=== PATIENT | male | born 2000 | race Caucasian/White ===

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

== ENCOUNTER 2021-01-10 15:21 | Outpatient (REF) | payer MEDICAID, SELFPAY ==
[2021-01-10 18:25] LABS: Anion Gap 12.4 mmol/L (3-11); BUN 21 mg/dL (7-18); CO2 25.6 mmol/L (21.0-32.0); CREATININE 0.7 mg/dL (0.70-1.30); Calcium 9.3 mg/dL (8.5-10.1); Calculated LDL 128 mg/dL (<100); Chloride 104 mmol/L (98-107); Cholesterol 177 mg/dL (<200); Glucose 68 mg/dL (74-106); HDL Cholesterol 31 mg/dL (40-60); Potassium 3.8 mmol/L (3.5-5.1); Sodium 142 mmol/L (136-145); Triglyceride 92 mg/dL (<150)
[2021-01-10 18:45] LABS: Hemoglobin A1C 5.6 % (<5.7)
== END 2021-01-10 15:22 | disposition home or self-care (01) ==
LOC: NCHCN 15:21
PROVIDERS: PCP Physician Assistant; Visit Provider Physician Assistant
DX: E78.5 Hyperlipidemia, unspecified (principal); R73.09 Other abnormal glucose
CPT/HCPCS: 80048; 80061; 83036

== ENCOUNTER 2021-06-03 20:46 | Emergency (ER) | payer MEDICAID, SELFPAY ==
--- NOTE | 2021-06-03 20:48 | W.ED.GENAD ---
Discharge Plan Disposition Patient Disposition: HOME Condition: Stable Discharge Details Clinical Impression: Finger laceration Primary Care Provider: Rei Quintero ED Provider: Sunni Carter Home Meds and New Rx's Prescriptions: New doxycycline hyclate 100 mg tablet 100 mg PO BID 7 Days Qty: 14 RF: 0 Continued methylphenidate HCl [Concerta] 36 MG tablet extended release 24hr 54 mg PO DAILY RF: 0 Discharge Instructions Instructions: Finger Laceration (ED) Additional Instructions: Keep wound clean and dry. Cover wound with bandage if risk of contamination. Otherwise you can keep the wound open to air if resting at home to allow edges to dry and heal. Alternate tylenol and motrin as needed and directed for pain. A prescription for doxycycline has been sent electronically to your pharmacy. Take this as directed until finished. Return to the emergency department in 7 days for suture removal. Stand Alone Forms: Work Release Discharge Data Discharge Date/Time-TO BE ENTERED AT DEPARTURE: 06/03/21 22:46 Discharge Physician: Sunni Carter Medical Decision Making <Sunni Carter DO - Last Filed: 06/04/21 01:52> 20-year-old male presents with left second finger laceration sustained with a knife while cutting a pumpkin prior to arrival. Tetanus up to date. 3 cm straight laceration located on medial aspect of proximal phalange of left second finger. Bleeding controlled. No bony deformities or foreign bodies noted. He was offered xray but declined. Neurovascularly intact. Due to high volume in the ED, suture placement performed by MAHESH Burleson. Please see her procedure note for further details. 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 He is allergic to penicillin. He was given doxycycline to go and a prescription was sent electronically to his pharmacy. Instructed on the importance of proper wound care. Advised to return to the ED in 7 days for suture removal. Medical Records Medical records reviewed: Yes I reviewed the patient's medical records. HPI <DO Claire Worley Last Filed: 06/04/21 01:52> General Mode of arrival: ambulatory. Date/Time Provider Initiated Documentation: 06/03/21 20:48. Limitations to Documentation: no limitations. Information obtained by: patient. HPI Narrative: Patient is a 20-year-old male who presents to the ED with complaint of left second finger laceration sustained while cutting a pumpkin with a knife prior to arrival. States knife is still intact. Denies any known foreign bodies. Denies any deep bony pain. Tetanus up-to-date. Related Data Home Medications Medication Instructions Recorded Confirmed methylphenidate HCl [Concerta] 54 mg PO DAILY 11/24/12 06/03/21 doxycycline hyclate 100 mg PO BID 7 Days #14 tab 06/03/21 Previous Rx's Medication Instructions Recorded doxycycline hyclate 100 mg PO BID 7 Days #14 tab 06/03/21 Allergies Allergy/AdvReac Type Severity Reaction Status Date / Time amoxicillin [Amoxicillin] Allergy Mild Skin Rash Verified 06/03/21 20:53 General NAVID: 4 Review of Systems <Sunni Carter DO - Last Filed: 06/04/21 01:52> All systems reviewed & are unremarkable except as noted in HPI and below PFSH <Sunni Carter DO - Last Filed: 06/04/21 01:52> Medical History (Updated 06/03/21 @ 22:37 by Sunni Carter DO) ADD (attention deficit disorder) Surgical History No significant past surgical history Social History Smoking/Tobacco Use Status: Never Smoking risk assessment performed?: Yes Alcohol Intake: never Drug use: Never Substance use type: does not use Current gender identity: male Do you feel safe at home: Yes Do you feel safe in your relationship?: Yes Exam <Sunni Carter DO - Last Filed: 06/04/21 01:52> Const General: cooperative, healthy appearing and no acute distress [facility] Head: normal to inspection Mouth: oral mucosae normal Eyes General: appearance normal, both eyes and all related structures Neck Neck: normal visual inspection Resp Effort & Inspection: normal respiratory effort and able to speak in complete sentences Cardio Rate: regular rate Skin General skin exam: no rashes or lesions noted Neuro General: patient alert, patient awake and patient oriented x3 Motor: muscle tone normal throughout Other: Motor/sensory grossly intact. Extrem Hand/finger images: 1. 3 cm straight laceration located on the medial aspect of left second finger proximal phalange. Bleeding controlled. Mild to moderate surrounding tissue edema. No obvious foreign bodies or bony deformity. Psych Appearance: grossly normal Affect: normal affect <Malia Burleson - Last Filed: 06/04/21 00:29> Laceration Laceration 1: Site: hand (Index finger) Side (If applicable): left Size (cm): 3.5 Description: irregular Depth: simple, single layer Local Anesthetic: Lidocaine 1% Pre-repair: wound explored and irrigated extensively Skin layer closed with: nylon Size (cm): 5-0 Number of sutures: 6 Technique: simple, interrupted Nerve Block Nerve Block 1: Time out performed: No Local Anesthetic: Lidocaine 1% Amount of anesthesia used (mL): 4 Side: left Nerve Blocks: digital (4 sided ring) Procedure Successful: Yes Patient Tolerated Procedure: well and no complications Complications: none
[2021-06-03 20:49] VITALS: BP 140/71; PULSE 88; RESP 18; TEMP 36.8; O2SAT 97
--- NOTE | 2021-06-03 21:49 | PROC.BLANK_ITS ---
Date of service: 06/03/21
--- NOTE | 2021-06-03 21:49 | W.ED.PROC ---
Date of service: 06/03/21
[2021-06-03] MEDS: Doxycycline Hyclate 100 MG, 2 CAPS/BTL PO (22:22)
[2021-06-03] MEDS: Doxycycline Hyclate 100 MG CAP PO (22:22)
--- NOTE | 2021-06-03 22:22 | NUR.NOTE ---
Nursing Note: Band aid drsg applied over left index finger wound post suture placement.
== END 2021-06-03 22:46 | disposition home or self-care (01) ==
PROVIDERS: Emergency Provider Physician Assistant; PCP Physician Assistant
DX: S61.211A Laceration without foreign body of left index finger without damage to nail, initial encounter (principal); W26.0XXA Contact with knife, initial encounter
CPT/HCPCS: 12002

== ENCOUNTER 2022-01-15 15:13 | Outpatient (REF) | payer MEDICAID, SELFPAY ==
[2022-01-15 15:49] LABS: Anion Gap 9.2 mmol/L (3-11); BUN 21 mg/dL (7-18); CO2 25.8 mmol/L (21.0-32.0); CREATININE 0.9 mg/dL (0.70-1.30); Calcium 9.1 mg/dL (8.5-10.1); Calculated LDL 142 mg/dL (<100); Chloride 105 mmol/L (98-107); Cholesterol 200 mg/dL (<200); Glucose 90 mg/dL (74-106); HDL Cholesterol 33 mg/dL (40-60); Potassium 4.3 mmol/L (3.5-5.1); Sodium 140 mmol/L (136-145); Triglyceride 125 mg/dL (<150)
[2022-01-16 17:18] LABS: Hemoglobin A1C 5.6 % (<5.7)
== END 2022-01-15 15:14 | disposition home or self-care (01) ==
LOC: NCHCN 15:13
PROVIDERS: PCP Physician Assistant; Visit Provider Physician Assistant
DX: R73.03 Prediabetes (principal); E78.5 Hyperlipidemia, unspecified
CPT/HCPCS: 80048; 80061; 83036

== ENCOUNTER 2022-04-07 19:37 | Emergency (ER) | payer MEDICAID, SELFPAY ==
[2022-04-07] VITALS (18 sets, daily range): BP systolic 113–147; BP diastolic 47–79; PULSE 81–101; RESP 14–26; TEMP 36.8; O2SAT 97
--- OUTSIDE RECORDS SUMMARY | 2022-04-07 19:42 | XMS_ITS | Encounter Summary ---
:2000 Author Organization [facility] [place] [address] Care Team Providers Name Role Phone Nell Wesley MD Primary Care Provider Encounter Details Date Type Department Care Team Description 07/07/2018 Hospital Encounter Radiology Library at [facility] [place] [address] [place] [address] ORTHOPAEDIC SURGERY [phone] [place], [place] [address] (Wo rk) Social History Tobacco Use Types Packs/Day Years Used Date Never Assessed Sex Assigned at Date Recorded Not on file documented as of this encounter Medications at Time of Discharge Medication Sig Dispensed Refills Start Date End Date CONCERTA 54 mg Tablet 1 tablet 2 times 0 06/15/20 18 Extended Rel 24 hr daily. documented as of this encounter Plan of Treatment Not on filedocumented as of this encounter Procedures Procedure Name Priority Date/Time Associated Diagnosis Comme nts FILM LIBRARY Routine 07/07/2018 12:00 AM Results for this STORAGE ONLY DX EST procedure ar e in SPINE the results section. documented in this encounter Results Film Library- Storage Only DX Spine (07/07/2018 12:00 AM EST) Specimen (Source) Anatomical Location Collection Method / Collectio n Time Received Time / Laterality Volume Narrative [facility] - 07/13/2018 7:36 PM EST This exam is for storage only and is aut o-finalizing. Calderon Reveles MD IMG FILM LIBRARY ORDERABLES Performing Organization Address City/State/ZIP Code Phon e Number [place], [place] documented in this encounter Visit Diagnoses Not on filedocumented in this encounter Care Teams Data Analytics Analyst Relationship Specialty Start Date End Date Nell Wesley MD PCP - General Pediatrics 11/20/17 [address] [place] [address] documented as of this encounter
--- OUTSIDE RECORDS SUMMARY | 2022-04-07 19:42 | XMS_ITS | Encounter Summary ---
:2000 [place] [address] Care Team Providers Name Role Phone Nell Wesley MD Primary Care Provider Reason for Visit Reason Onset Date Comments Referral 11/28/2017 Encounter Details Date Type Department Care Team Description 11/28/2017 Telephone Weight and Wellness at Judith Frank MD Referral [facility] [address] [facility] [place] [address] [place] [address] [phone] (Wo rk) Social History Tobacco Use Types Packs/Day Years Used Date Never Assessed Sex Assigned at Date Recorded Not on file documented as of this encounter Miscellaneous Notes Telephone Encounter - Judith Frank MD - 12/03/2017 10:43 PM EDT [facility] Referral Note Name: Brijesh Lam MR: [id number] : 2000 Age: 16 y.o. 11 m.o. PCP:Nell Wesley MD [employer]SEM[employer]:No primary care provider on file. Note to scheduling: [xx ] scanned labs available for review DiIAGNOSIS / CONCERN: SCHEDULING- PROVIDER: [ ] Hyperlipidemia without elevated BMI: [ ] Harvinder [ ] Juan Daniel [ ] Either [x ] Elevated BMI +/- comorbidities: [ ] Harvinder [ ] Monika [x ] Either Additional information: Telephone Encounter - Roxanna Savage - 11/28/2017 9:24 AM EDT Please review Thank you documented in this encounter Plan of Treatment Not on filedocumented as of this encounter Visit Diagnoses Not on filedocumented in this encounter Care Teams Teletypesetter Operator Relationship Specialty Start Date End Date Nell Wesley MD PCP - General Pediatrics 11/20/17 [address] [place] [address] documented as of this encounter
--- OUTSIDE RECORDS SUMMARY | 2022-04-07 19:42 | XMS_ITS | Clinical Summary ---
:2000 Author Organization [facility] Address [place] [id number] Care Team Providers Name Role Phone Nell Wesley MD Primary Care Provider Allergies Active Allergy Reactions Severity Noted Date Comments Amoxicillin Rash 07/14/2018 Medications Medication Sig Dispensed Refills Start Date End Date Status CONCERTA 54 mg Tablet 1 tablet 2 times 0 06/15/2018 Active Extended Rel 24 hr daily. ibuprofen Take 400 mg by 0 Activ e (ADVIL;MOTRIN) 200 mg mouth as needed Tablet for Pain. Active Problems Problem Noted Date Herniation of lumbar intervertebral disc with radiculo yonathan 09/08/2018 Overview: L5-S1 left Social History Tobacco Use Types Packs/Day Years Used Date Never Smoker Smokeless Tobacco: Never Used Sex Assigned at Date Recorded Not on file Last Filed Vital Signs Vital Sign Reading Time Taken Comments Blood Pressure 135/78 08/13/2018 8:54 AM EST Pulse 89 08/13/2018 8:54 AM EST Temperature - - Respiratory Rate 16 08/13/2018 8:54 AM EST Oxygen Saturation 96% 08/13/2018 8:54 AM EST Inhaled Oxygen Concentration - - Weight 120.2 kg (265 lb) 08/13/2018 8:18 AM EST Height 172.7 cm (5' 8) 08/13/2018 8:18 AM EST Body Mass Index 40.29 08/13/2018 8:18 AM EST Plan of Treatment Health Maintenance Due Date Last Done Comments Covid-19 Vaccine (#1) 2006 HPV vaccine (1 - Male 2-dose series) 2012 HIV screen 12/17/2019 Hepatitis C Screening 12/17/2019 Tdap adult 2020 Tetanus vaccine 2020 Influenza (Flu) vaccine (1 of 1 - Influenza standard 04/18/2022 series) Insurance Payer Benefit Plan / Subscriber ID Effective Dates Phone Addre ss Type Group [place] [id number] 2018-Pres [phone] [address] [facility] ent [address] [place], [place] [phone] Care Teams Histology Technician Relationship Specialty Start Date End Date Nell Wesley MD PCP - General Pediatrics 11/20/[address] [place] [address]
--- OUTSIDE RECORDS SUMMARY | 2022-04-07 19:42 | XMS_ITS | Encounter Summary ---
:2000 Author Organization [facility] [place] [address] Care Team Providers Name Role Phone Nell Wesley MD Primary Care Provider Reason for Visit Reason Comments Other numbness in right leg Back Pain Consultation (Routine) - Closed Specialty Diagnoses / Procedures Referred By Contact Refer red To Contact Orthopaedics Diagnoses Herniation of lumbar intervertebral disc with radiculopathy Francisco J Holden PA [facility] [address] [place] [address] [place] [address] Phone: Referral ID Status Reason Start Date Expiration Date Visits V isits Requested Authorized [id number] Closed Consult, 08/31/2018 08/31/2019 1 1 Test & Treat Encounter Details Date Type Department Care Team Description 09/08/2018 Office Visit [facility] on of lumbar [place] [facility] [address] [place] [address] [phone] Social History Tobacco Use Types Packs/Day Years Used Date Never Smoker Smokeless Tobacco: Never Used Sex Assigned at Date Recorded Not on file documented as of this encounter Progress Notes [facility]on James MD - 09/08/2018 9:20 AM EST Images from the original note were not included. Calderon James MD MS FAOA Department of Orthopaedics [facility] September 08, 2018 Mr. Lam is a 17-year-old gentleman seen today in the spine center in consultation from RIKKI Zapien. He is seen and evaluated for resolving left leg pain and numbness. Symptoms began in late April playing football. He had the acute onset of posterior thigh pain left side felt to be a hamstring pull. He was seen by his physical therapist who thought it was a lumbar spine problem leading tohis lumbar MRI eventually. His right leg is asymptomatic. He has minimal back pain. His left leg pain is improving. He has no pain at night at present. He has no weakness. He has had one epidural steroid injection with significant though temporary improvement. He continues to go to school. He has an interest in agriculture. His review of systems is negative for GI, , and constitutional symptoms. Specifically has no perineal numbness or bowel bladder changes and no indication at all of cauda equinasyndrome. Allergies include amoxicillin causing a rash. He is morbidly obese with a height of 5 feet 8 inches,weight of 265 pounds with a body mass index of 40.29. Leg pain is rated as a 5. He is accompanied byhis mother who works with Dr. Juarez Parks with one thank you of our formal orthopedic residents. This is a pleasant quiet obese gentleman. In the short distance his gait is normal. He can toe and heel walk without weakness. He has no difficulties getting in and out of a sitting position to a standing position. On inspection from the back he has a level pelvis and straight spine all of which is nontender including the sciatic notches. He has multiple areas of complaint throughout his back including the low lumbar spine area. On neurologic examination his lower extremity motor exam is completely normal. Reflexes are 2 at the knees and ankles. Sensory function is diminished only in the left foot medial equal to lateral. Straight leg raise test and cross straight leg raise test and notable only for back pain not leg pain. Lumbar MRI is reviewed from this institution dated 08/12/28. This demonstrates a large left central disc herniation L5-S1 seen on axial T2 images 29 and 30 series 5 and sagittal T2 image 33 series 4. He has a broad-based disc protrusion L4-L5 which is also a very degenerative disc. He has disc degeneration T11-T12. Impression: Resolving lumbar radiculopathy left side L5-S1. Recommendation: Reviewed these findings including the imaging studies with the patient and his mother. I reviewed the natural history of lumbar intervertebral disc herniation. I reviewed both medical and surgical options as well. Given that he is 17 years old and his symptoms are improving and he has no focal objective neurological deficits of recommended continued medical management which may include repeated injections up at [facility] by Dr. Robertson if needed. I reviewed the potential for cauda equina syndrome noting that it should be a medical emergency and the patient should seek immediate care and withhold any oral intake. I also advised caution with regards to lifting bending twisting activities and avoidance of football. If his symptoms worsen to a significant degree choices include repeat injection versus surgical discussion and intervention. This is a very tough situation in a morbidly obese gentleman with 2 degenerative disc in 1 large herniation but fortunately is improving. He is likely at high risk for chronic low back pain and/or repeated operations just given the current findings and the literature on this problem. All this was reviewed in detail with the patient and his mother. They know to call if there is any questions or concerns or changes. Calderon James MD MS FAOA Department of Orthopaedic Surgery [place] [address] Mobile Sales Technician of Orthopaedic Surgery [facility] [phone] [email or web address] documented in this encounter Plan of Treatment Scheduled Referrals Name Type Priority Associated Diagnoses Order S chedule Referral to Spine Outpatient Referral Routine Herniation of hannah mbar Ordered: Center intervertebral disc 08/31/19 19 with radiculopathy documented as of this encounter Visit Diagnoses Diagnosis Herniation of lumbar intervertebral disc 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
--- OUTSIDE RECORDS SUMMARY | 2022-04-07 19:42 | XMS_ITS | Encounter Summary ---
:2000 Author Organization [facility] [place] [address] Care Team Providers Name Role Phone Nell Wesley MD Primary Care Provider Reason for Referral Routine Exam (Routine) - Specialty Diagnoses / Procedures Referred By Contact Refer red To Contact Diagnoses Intervertebral disc disorder with radiculopathy of lumbar region Queenie Pressley MD Procedures Epidural steroid injection - [facility] [place] [address] Referral ID Status Reason Start Date Expiration Visits Visits Date Requested Authorized [id number] Specialty 08/13/2018 08/13/2019 1 1 Service Requested Reason for Visit Reason Comments Back Pain Consultation (Routine) - Closed Specialty Diagnoses / Procedures Referred By Contact Refer red To Contact Pain Management Diagnoses Herniation of lumbar intervertebral disc with radiculopathy Request LEFT L5-S1 LESI. Francisco J Holden MChan Pain Management Procedures PRO INJECTION DX/THER SBST INTRLMNR LMBR/SAC W/IMG GDN PA 3d [facility] [address] [place], [place] [id number] [place] [phone] Fax: Referral ID Status Reason Start Date Expiration Date Visits V isits Requested Authorized [id number] Closed Assume 08/12/2018 08/12/2019 1 1 Subset of Care Encounter Details Date Type Department Care Team Description 08/13/2018 Procedure visit Pain Management at Queenie Pressley MD Intervertebral disc [facility] disorder with [facility] radiculopathy of lumbar Drive [place] [id number] [phone] Social History Tobacco Use Types Packs/Day Years Used Date Never Smoker Smokeless Tobacco: Never Used Sex Assigned at Date Recorded Not on file documented as of this encounter Last Filed Vital Signs Vital Sign Reading [...] Mass Index 40.29 08/13/2018 8:18 AM EST Body Mass Index Percentile 99.69 % 08/13/2018 8:18 AM ES T Growth Chart: [facility] (Boys, 2-20 Years) documented in this encounter Patient Instructions Patient InstructionsJen Collier RN - 08/13/2018 8:15 AM EST Pain Management Center Discharge Instructions: You were seen by Dr. Queenie Pressley MD and Howard Pemberton MD who performed Caudal Epidural Steroid Injection. It is normal that the injection site will be sore for up to 48 hours. You may also experience mild stiffness in the joint near the injection site. [x] You may resume your normal activities: tomorrow. You may shower today. DO NOT tub bathe, use whirlpools, hot tubs or pool therapy for 2 days. Remove Band-Aid(s) later today/tomorrow. Do not drive until tomorrow. Use caution walking/climbing stairs as you may be unsteady on your feet. You may use your usual medications, including pain medications, as directed, unless otherwise instructed. You may use an ice pack as needed for the first 24 hours, on for 20 minutes then off for 20 minutes.Do not apply heat today. Attempt to empty your bladder 4-6 hours after your procedure. You received the following medications: Depo-Medrol 80 mg, Lidocaine and Omnipaque (contrast dye). During regular business hours, please phone the Pain Management Center at with any questions or if the following or other troubling symptoms develop: 1) Prolonged dizziness or weakness (more than 1 day). 2) Localized swelling, redness or drainage at the injection site(s). 3) Temperature of 101 degrees that lasts for more than 4 hours. After 5 PM or on weekends, call and ask for Pain Clinic provider on-call. If you are unable to reach the Pain Management Center and have a complication, please call your Primary Care Provider or proceed to your local emergency department. documented in this encounter Progress Notes Howard Pemberton MD - 08/13/2018 8:15 AM EST PREPROCEDURE HISTORY AND PHYSICAL Date of Visit: August 13, 2018 Chief Complaint: Left leg and low back HPI: Subjective Brijesh Lam is a 17 y.o. male who presents today for caudal epidural steroid injection. The history is obtained from the patient, and I have reviewed medical records provided by the referring physician and located in the electronic medical record to fill in gaps in the patient's recollection of events, treatments and outcomes. LOCATION: Left leg and low back PAIN LEVEL AT REST 7/10 PAST MEDICAL HISTORY: History reviewed. No pertinent past medical history. PAST SURGICAL HISTORY: History reviewed. No pertinent surgical history. FAMILY HISTORY: History reviewed. No pertinent family history. SOCIAL HISTORY: Social History Socioeconomic History ??? Marital status: Single Spouse name: Not on file ??? Number of children: Not on file ??? Years of education: Not on file ??? Highest education level: Not on file Social Needs ??? Financial resource strain: Not on file ??? Food insecurity - worry: Not on file ??? Food insecurity - inability: Not on file ??? Transportation needs - medical: Not on file ??? Transportation needs - non-medical: Not on file Occupational History ??? Not on file Tobacco Use ??? Smoking status: Never Smoker ??? Smokeless tobacco: Never Used Substance and Sexual Activity ??? Alcohol use: Not on file ??? Drug use: Not on file ??? Sexual activity: Not on file Other Topics Concern ??? Not on file Social History Narrative ??? Not on file ALLERGIES: Amoxicillin MEDICATIONS: Medications 08/12/18 1033 Medication Sig Taking? CONCERTA 54 mg Tablet Extended Rel 24 hr 1 tablet 2 times daily. ibuprofen (ADVIL;MOTRIN) 200 mg Tablet Take 400 mg by mouth as needed for Pain. cyclobenzaprine (FLEXERIL) 5 mg Tablet Take 1 tablet by mouth nightly as needed (Can take one-half tablet if needed.). Patient not taking: Reported on 08/12/2018 ROS: Pt denies recent fever, chills, infection, wounds, hospitalizations, ED visits, use of antibiotics. Otherwise, as described above. PHYSICAL EXAM: There were no vitals taken for this visit. General: patient well developed and is non-distressed Head: normocephalic and atraumatic CV: normal rate, normal rhythm Pulmonary: effort and breath sounds normal, no wheezing Skin: non-diaphoretic and no rashes noted MSK: full LE strength Physical Exam RADIOLOGIC DATA: MRI reviewed from 08/13/18 LABS/DX RESULTS: Labs reviewed and no new labs pertinent to today's procedure. ASSESSMENT: 1. Intervertebral disc disorder with radiculopathy of lumbar region PLAN: Proceed with caudal epidural steroid injection with catheter to L5-S1. Howard Pemberton MD Pain Management Fellow [address] [phone] / [facility] Jen Collier RN - 08/13/2018 8:15 AM EST Pre-Procedure Screening Questions: 1. Status: No 2. Patient states they have a commercial driver's license driver to transport after procedure? Yes 3. Patient taking antibiotics at present? No 4. NPO per Pain Management Center protocol? No 5. Patient diabetic: No Patient routinely taking anticoagulants ? No Patient Vital Signs documented in Doc Flowsheets associated with this encounter. Patient Discharge Instructions were reviewed with patient and copy provided to patient. documented in this encounter Procedure Notes Queenie Pressley MD - 08/13/2018 8:15 AM ESTAssociated Order(s): EPIDURAL STEROID INJECTION Procedure(s): EPIDURAL STEROID INJECTION Pre-Procedure Diagnose(s): Intervertebral disc disorder with radiculopathy of lumbar region PROCEDURE NOTE CAUDAL EPIDURAL STERIOID INJECTION Date of Service: 08/13/2018 Patient: Brijesh Lam Provider: Queenie Pressley MD Brijesh Lam has been referred to the Pain Management Center for caudal epidural steroid injection. COMMENTS: Referring provider: Francisco J BRANDT Symptoms: left posterior thigh, plantar aspect of left foot Imaging reviewed MRI L spine which showed large L5-S1 disc protrusion. Mr. Lam was interviewed and the medical record was reviewed. There were no medical, pharmacologic,radiographic or other structural contraindications to attempting fluoroscopically guided epidural steroid injection. Risks and expected side effects as well as potential benefit of the procedure were re viewed with Mr. Lam, and his voiced concerns were addressed. The printed consent form was signed and witnessed. Standard time-out procedure was performed. Mr. Lam was placed in the prone position on the fluoroscopy table and automated blood pressure cuff and pulse oximeter applied. The skin entry point for entering/approaching the epidural space by a caudal approach through the sacral hiatus ed identified with surgical skin marking. Following thorough chlorhexidine preparation x 2 of the skin and draping and 1% lidocaine infiltration of the skin entry point and subcutaneous tissues, a 25 gauge 3.5'' spinal needle was placed under fluoroscopic guidance into the epidural space. Needle tip placement and depth were aided and confirmed by fluoroscopy in the lateral and AP position. There was no paresthesia or return of blood or CSF through the needle. 1.5 cc of Omnipaque 240 wasinjected with clear epidural spread confirmed with fluoroscopy with cephalad spread to L5-S1. Then 80 mg of Depomedrol was injected. There was no unusual discomfort expressed by Mr. Lam. The needle was then flushed with 2 cc of 1% Lidocaine and 2 cc of 0.9% normal saline they were removed without difficulty. Mr. Gardners vital signs were stable throughout the procedure and were as recorded in the docflowsheet by the nursing staff. If given, dosages of intravenous drugs for anxiolysis and analgesia were documented in OCT. Follow up plans and appointments were discussed with Mr. Lam. Post procedure instruction was givenas documented in nursing documentation and having met discharge criteria, he was discharged from [facility]. COMMENTS: No apparent complications. This procedure can be completed up to 3 times per 12 months. Pre-procedure pain level 7/10. Post-procedure pain level 0/10. Follow-up with Francisco J Holden. Howard Pemberton MD Pain Fellow I was the supervising attending for this procedure. I am present during the entire procedure. Queenie Pressley MD Attending Physician-Pain Management Thank you for the referral! CC: RIKKI Taylor [facility] [place] [address] Nell Wesley MD [facility] [address] [place] [address] documented in this encounter Plan of Treatment Not on filedocumented as of this encounter Procedures Procedure Name Priority Date/Time Associated Diagnosis Comme nts EPIDURAL STEROID Routine 08/13/2018 8:15 AM Intervertebral dis c Results for this INJECTION EST disorder with procedure are in radiculopathy of lumbar the results region section. documented in this encounter Results EPIDURAL STEROID INJECTION (08/13/2018 8:15 AM EST) Narrative Queenie Pressley MD - 08/13/2018 8:15 AM EST Queenie Pressley MD ? 08/13/2018 10:07 AM PROCEDURE NOTE CAUDAL EPIDURAL STERIOID INJECTION Date of Service: ??08/13/2018 Patient: ??Brijesh Lam ?? 20- Provider: ??Queenie Pressley MD ?? Brijesh Lam has been referred to the [place] [facility] for caudal epidural steroid injection. ?? COMMENTS: Referring provider: ??Francisco J BRANDT Symptoms: left posterior thigh, plantar aspect of left foot Imaging reviewed MRI L spine which showe d large L5-S1 disc protrusion. Mr. Lam was interviewed and the medica l record was reviewed. ?? There were no medical, pharmacologic, ra diographic or other structural contraindications to attempti ng fluoroscopically guided epidural steroid injection. ??Ris ks and expected side effects as well as potential benefit of the procedure were reviewed with Mr. Lam, and his voiced concerns were addressed. ?? The printed consent form was signed and witnessed. ??Standard time-out procedure was performed. Mr. Lam was placed in the prone positi on on the fluoroscopy table and automated blood pressure cuff and pulse oximeter applied. ??The skin entry point for ente ring/approaching the epidural space by a caudal approach thro ugh the sacral hiatus ed identified with surgical skin marking. ? ?Following thorough chlorhexidine preparation x 2 of the ski n and draping and 1% lidocaine infiltration of the skin entry point and subcutaneous tissues, a 25 gauge 3.5'' spinal needle was placed under fluoroscopic guidance ??into the epidura l space. Needle tip placement and depth were aide d and confirmed by fluoroscopy in the lateral and AP positi on. There was no paresthesia or return of blood or CSF th rough the needle. 1.5 cc of Omnipaque 240 was injected with clear epidural spread confirmed with fluoroscopy with cephalad spread to L5-S1. Then 80 mg of Depomedrol was ??injected. There w as no unusual discomfort expressed by Mr. Lam. ??The needle was then flushed with 2 cc of 1% Lidocaine and 2 cc of 0.9% normal shane ine they were removed without difficulty. Mr. Lam's vital signs were stable thro ughout the procedure and were as recorded in the docflowsheet by the nursing staff. ??If given, dosages of intravenous drugs for anxiolysis and analgesia were documented in MAR. Follow up plans and appointments were di scussed with Mr. Lam. ?? Post procedure instruction was given as documented in nursing documentation and having met zoë madison, he was discharged from the Pain Management Cent er. COMMENTS: No apparent complications. ??T his procedure can be completed up to 3 times per 12 months. Pre-procedure pain level 7/10. Post-proc edure pain level 0/10. Follow-up with Francisco J Holden. Howard Pemberton MD Pain Fellow I was the supervising attending for this procedure. I am present during the entire procedure. Queenie Pressley MD Attending Physician-Pain Management Thank you for the referral! CC: RIKKI Taylor [facility] [place] [address] Nell Wesley MD [address] [address] Queenie Pressley MD NEUROLOGY ORDERABLES documented in this encounter Visit Diagnoses Diagnosis Intervertebral disc disorder with radicu lopathy of lumbar region Thoracic or lumbosacral neuritis or radi culitis, unspecified documented in this encounter Administered Medications Inactive Administered Medications - up to 3 most recent administrations Medication Order MAR Action Action Date Dose Rate Site iohexol (OMNIPAQUE) 240 mg/mL Given 08/13/2018 8:45 AM EST 5 mLs solution 5 mL 5 mL, Epidural, ONCE, 1 dose, On Jessy 08/13/18 at 0845, Wasted 45ml epidurally, Routine methylPREDNISolone acetate (DEPO-Medrol) Given 08/13/2018 8:45 A M EST 80 mg injection 80 mg 80 mg (0.666 mg/kg/dose), Epidural, ONCE, 1 dose, On Jessy 08/13/18 at 0845, Routine documented in this encounter Care Teams Metal Solderer Relationship Specialty Start Date End Date Nell Wesley MD PCP - General Pediatrics 11/20/[address] [place] [address] documented as of this encounter
--- OUTSIDE RECORDS SUMMARY | 2022-04-07 19:42 | XMS_ITS | Encounter Summary ---
:2000 Author Organization [facility] [place] [address] Care Team Providers Name Role Phone Nell Wesley MD Primary Care Provider Reason for Visit Reason Comments Back Pain Left Leg Pain Consultation (Urgent) - Specialty Diagnoses / Procedures Referred By Contact Refer red To Contact Orthopaedics Diagnoses HAMSTRING PAIN STARTED 1 MONTH AGO, THEN W/ RADIATION DOWN LEFT LEG, AND NOW HAS FOOT NUMBNESS DURING STRETCHING EXERCISES Nell Wesley MD [facility] Procedures X RAY SHOWS NARROWING OF DISK SPACE IN LUMBAR REGION [address] [place] [address] [place] [address] Referral ID Status Reason Start Date Expiration Date Visits V isits Requested Authorized [id number] Consult, 07/13/2018 07/13/2019 25 25 [facility] Encounter Details Date Type Department Care Team Description 07/14/2018 Office Visit [facility], Francisco J M, Left l umbosacral radiculopathy; Robson BRANDT Acute left-sided low back pain with left -sided sciatica [facility] [address] [place] [phone] Social History Tobacco Use Types Packs/Day Years Used Date Never Smoker Smokeless Tobacco: Never Used Sex Assigned at Date Recorded Not on file documented as of this encounter Last Filed Vital Signs Vital Sign Reading Time Taken Comments Blood Pressure 141/73 07/14/2018 10:57 AM EST Pulse - - Temperature - - Respiratory Rate - - Oxygen Saturation - - Inhaled Oxygen Concentration - - Weight 115.7 kg (255 lb) 07/14/2018 10:57 AM EST Height 172.7 cm (5' 8) 07/14/2018 10:57 AM EST Body Mass Index 38.77 07/14/2018 10:57 AM EST Body Mass Index Percentile 99.61 % 07/14/2018 10:[address] Growth Chart: [facility] (Boys, 2-20 Years) documented in this encounter Progress Notes Francisco J Holden, RIKKI - 07/14/2018 10:40 AM EST Brijesh Lam Is a 17-year-old gentleman seen today with his mother to support his history. This is for chief complaint of low back pain with left lower extremity radiation notable over the past 2-3 months. It has been progressive over the past 2 weeks with an increasing sense of numbness and tingling.Symptoms are localized over the midline low back, and goes over the right thigh and posterior calf and goes into the foot diffusely at the dorsal and plantar aspects. Symptoms improve with being in a recliner, standing and it worsens with prolonged sitting and driving and bending forward. 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 He thinks he would like to work in a form in the future. He tells me that recently, he has not really made much progress with physical therapy and he was sent to me today for evaluation and consideration of further treatment and evaluation. He does not report prior spine surgery. He does not report tobacco or alcohol use. Exam today, this is an obese 17-year-old gentleman, BMI 38, height is 5 feet 8 inches, weight is 255pounds. His gait is antalgic on the left. He has no weakness of toe walking or heel walking. He stands without evident spinal deformity. He is nontender to palpation. He does have positive straight legraise on the left side reproducing pain over his thigh and calf, negative on the right. He is able to bend forward only about 30 degrees and increasing back and left buttock pain, otherwise is able to extend about 20 degrees without much issues. Motor and sensory exam does not show focal deficits withthe exception of diminished sensation over the left dorsal and plantar foot. Reflexes are symmetric at both knees and both ankles. Palpable peripheral pulses. Painless hip range of motion on both sides. Reviewed plain x-rays of the lumbar spine performed in 2018 this shows well- preserved disc and vertebral body heights throughout without scoliosis or spondylolisthesis with the exception of the L5-S1 level where there is mild disc height loss. Assessment/plan: Brijesh Lam is a 17-year-old gentleman seen today for 2-3 months of back pain withleft lower extremity pain with positive straight leg raise, and diminished sensation over the left foot suggestive of a left lumbosacral radiculopathy likely with underlying lumbar disc herniation. I had a discussion with Brijesh and his mother about further management strategies here and for now they would like to trial further conservative management with oral medication should be Medrol Dosepakalongside cyclobenzaprine 5 mg due to his difficulties with pain at bedtime and falling asleep and staying asleep at night. I did advise them to monitor for excessive sedation with this medication and to break the tablet in half if necessary. If medications and physical therapy are not immediately effective for him, will contact our office and we will proceed with a noncontrast lumbar spine MRI, and following that we will discuss other options for treatment such as injection procedures and surgical intervention if indicated. documented in this encounter Plan of Treatment Not on filedocumented as of this encounter Visit Diagnoses Diagnosis Left lumbosacral radiculopathy Thoracic or lumbosacral neuritis or radi culitis, unspecified Acute left-sided low back pain with left -sided sciatica documented in this encounter Care Teams Radiator Repairer Relationship Specialty Start Date End Date Nell Wesley MD PCP - General Pediatrics 11/20/17 [address] [place] [address] documented as of this encounter
--- OUTSIDE RECORDS SUMMARY | 2022-04-07 19:42 | XMS_ITS | Encounter Summary ---
:2000 Author Organization [place] [address] Care Team Providers Name Role Phone Nell Wesley MD Primary Care Provider Reason for Referral Consultation (Routine) - Closed Specialty Diagnoses / Procedures Referred By Contact Refer red To Contact Pain Management Diagnoses Herniation of lumbar intervertebral disc with radiculopathy Request LEFT L5-S1 LESI. [facility] Pain Management Procedures PRO INJECTION DX/THER SBST INTRLMNR LMBR/SAC W/IMG GDN PA 3d [facility] [place] [address] [place] [address] Fax: Referral ID Status Reason Start Date Expiration Date Visits V isits Requested Authorized [id number] Closed Assume 08/12/2018 08/12/2019 1 1 Subset of Care Reason for Visit Reason Comments Follow-up Back Pain Encounter Details Date Type Department Care Team Description 08/12/2018 Office Visit [facility] at [facility] Herniatio n of lumbar RIKKI Skinner intervertebral disc with [facility] radiculop [facility] [address] [place] [phone] Social History Tobacco Use Types Packs/Day Years Used Date Never Smoker Smokeless Tobacco: Never Used Sex Assigned at Date Recorded Not on file documented as of this encounter Progress Notes Francisco J Holden PA - 08/12/2018 11:00 AM EST Brijesh Lam is a 17-year-old gentleman seen today in follow-up visit for over 3 months now of back pain and left leg pain, numbness and tingling. So far his symptoms have not really been responsive tomedications which has consisted of ibuprofen, Medrol Dosepak. Flexeril was attempted but apparently was giving a paradoxical response making him more agitated and more difficulty with falling asleep and so this drug was discontinued. Physical therapy as mentioned in my last note has been done for several months without much improvement. Had an MRI of the lumbar spine earlier today and is here to review the results of that imaging study. MRI of lumbar spine from earlier today was reviewed and this shows evidence of disc degeneration with disc dehydration and mild bulging at the L4-L5 level without concerning neural impingement. At the L5-S1 level there is a large left paracentral extruded herniated disc, narrowing the thecal sac, withsignificant left lateral recess stenosis in the left traversing S1 nerve root impingement. Remaininglevels show well-preserved disc and vertebral body heights throughout. Assessment/plan: Brijesh Lam is a 17-year-old gentleman seen today for chief complaint of back painand left leg pain, numbness and tingling, with features of left S1 radiculopathy with findings of a left L5-S1 disc herniation. Symptoms have not really been responsive so far to 3 months of conservative management with medications and physical therapy. I discussed with Genaro and his mother other options for treatment here such as lumbar epidural steroidal injection, and other than that, option of spine surgery which would be a left L5-S1 disc excision surgery. At the end of our discussion, Genaro and his mother opted to trial a lumbar epidural steroidal injection x1. I advised him that if the first injection is helpful, then this can be done up to 3 times in 12 months. If the injection is not effective however, he will see one of our spine surgeons instead for consideration of left L5-S1 discectomy. 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
--- OUTSIDE RECORDS SUMMARY | 2022-04-07 19:42 | XMS_ITS | CCD ---
:2000 Author Care Team Providers Name Role Phone ADIN PAGE Attending Physician Unavailable KALYN MARTIN Er Physician 1 BHAVIK Hayden Registered Nurse Unavailable Vital Signs Vital Sign Value Unit Date/Time Recent/Initial? BMI (Body Mass Index) 45.41 kg/m^2 04/05/2022 12:21 In itial VS Weight Measured 316.5 lbs 04/05/2022 12:21 Initial VS Height 70 in 04/05/2022 12:21 Initial VS BSA (Body Surface Area) 2.66 m^2 04/05/2022 12:21 Initial VS BP Systolic 151 mmHg 04/05/2022 12:21 Initial VS BP Diastolic 85 mmHg 04/05/2022 12:21 Initial VS Respiratory Rate 24 bpm 04/05/2022 12:21 Initial VS Heart Rate 83 bpm 04/05/2022 12:21 Initial VS O2 % BldC Oximetry 100 % 04/05/2022 12:21 Initi al VS Body Temperature 37 degrees 04/05/2022 12:21 Initial VS BP Systolic 135 mmHg 04/05/2022 14:50 Most Recent VS BP Diastolic 78 mmHg 04/05/2022 14:50 Most Recent VS Respiratory Rate 16 bpm 04/05/2022 14:50 Most Re cent VS Heart Rate 69 bpm 04/05/2022 14:50 Most Recent VS O2 % BldC Oximetry 99 % 04/05/2022 14:50 Most Recent VS Allergies Allergy Code Allergy Type Reaction Status No Known Drug Allergies 0 No known drug allergies Active Procedures Unknown or Not Available. History of Immunizations Unknown or Not Available. Problems Unknown or Not Available. Results BASIC METABOLIC PANEL (BMP) - Collect Da te/Time: 04/05/2022 12:42 Test Name Code Test Result Test Units Test Ref Range GLUCOSE 2345-7 95 mg/dL L=70 H=116 BUN 3094-0 16 mg/dL L=6 H=25 CREATININE 2160-0 0.89 mg/dL L=0.67 H=1.17 SODIUM SERUM 2951-2 139 mmol/L L=136 H=145 POTASSIUM SERUM 2823-3 3.9 mmol/L L=3.4 H=5.2 CHLORIDE SERUM 2075-0 102 mmol/L L=96 H=110 CARBON DIOXIDE (CO2) 2028-9 28 mmol/L L=22 H= 34 ANION GAP 78607-8 8.7 mmol/L CALCIUM SERUM 88884-2 9.5 mg/dL L=8.2 H=10.2 AGE 21 years eGFR (non-Afr.Amer.) 51792-6 109 mL/min eGFR (Afr-Nigerien) 73705-2 >120 mL/min TROPONIN HIGH SENSITIVITY* - Collect Shahid e/Time: 04/05/2022 12:42 Test Name Code Test Result Test Units Test Ref Range TROPONIN HS <4.0 pg/mL L=0.0 H=60.4 Specimen seq. Random N/A CBC W/ DIFFERENTIAL* - Collect Date/Time : 04/05/2022 12:42 Test Name Code Test Result Test Units Test Ref Range WBC 6690-2 8.92 th/cmm L=5.00 H=10.00 NEUT % 67.3 % L=40.0 H=80.0 LYMPH % 19.8 % L=10.0 H=50.0 MONO % 79314-5 7.5 % L=2.0 H=12.0 EOS % 4.7 % L=0.0 H=8.0 BASO % 0.3 % L=0.0 H=3.0 IG % 2514-8 0.4 % L=0.0 H=1.1 NRBC % 74618-2 0.0 % L=0.0 H=0.0 NEUT abs count 751-8 6.0 th/cmm L=1.6 H=8.4 LYMPH abs count 731-0 1.8 th/cmm L=1.5 H=4.0 MONO abs count 742-7 0.7 th/cmm L=0.2 H=1.0 EOS abs count 711-2 0.4 th/cmm L=0.0 H=0.5 BASO abs count 704-7 0.0 th/cmm L=0.0 H=0.2 IG abs count 03318-4 0.0 th/cmm L=0.0 H=0.1 NRBC abs count 63458-3 0.0 mil/cmm L=0.0 H=0.0 RBC 789-8 4.83 mil/cmm L=4.30 H=6.20 HEMOGLOBIN 718-7 13.9 gm/dL L=13.0 H=17.0 HEMATOCRIT 4544-3 42 % L=45 H=52 MCV 787-2 86 fL L=82 H=92 MCH 785-6 28.8 pg L=27.0 H=31.0 MCHC 786-4 33.4 % L=32.0 H=36.0 RDW-SD 788-0 40.0 fL L=39.0 H=49.0 PLATELET COUNT 777-3 267 th/cmm L=150 H=450 D-DIMER - Collect Date/Time: 04/05/2022 12:42 Test Name Code Test Result Test Units Test Ref Range D-DIMER 07498-9 0.23 mg/L L=0.19 H=0.50 [facility] COVID RHEONIX* - Collect Date/Car e: 04/05/2022 14:34 Test Name Code Test Result Test Units Test Ref Range Tier- 52696-1 SYMPTOMS N/A SARS COV2 RNA: 63956-2 NEGATIVE N/A REFERENCE RAN GE: NEGAT Active Medications Unknown or Not Available. Medications Administered During Visit Unknown or Not Available. Encounters Unknown or Not Available. Social History Unknown or Not Available. Patient Decision Aids Unknown or Not Available. Discharge Instructions You were admitted to [facility] on 04/05/2022 12:07 You had the following tests done: COPLE Y COVID RHEONIX* BASIC METABOLIC PANEL (BMP) CBC W/ DIFFERENTIAL* D-DIMER TROPONIN HI GH SENSITIVITY* You were discharged from [facility] on 04/05/2022 14:51 Should you have any questions prior to d ischarge, please contact a member of your healthcare team. If you have left the ho spital and have any questions, please contact your primary care physician. Chief Complaint and Reason For Visit Chief Complaint Date of Onset CHEST PAIN Function Status Unknown or Not Available. Plan of Care Unknown or Not Available. Referral/Transition of Care Unknown or Not Available.
--- OUTSIDE RECORDS SUMMARY | 2022-04-07 19:42 | XMS_ITS | Encounter Summary ---
:2000 Author Organization [place] [address] Care Team Providers Name Role Phone Nell Wesley MD Primary Care Provider Reason for Referral Diagnostic Test (Routine) - Closed Specialty Diagnoses / Procedures Referred By Contact Refer red To Contact Radiology Diagnoses Low back pain, non-specific [facility] Rad Mri Procedures MRI Lumbar Spine wo Contrast (Generic) [place] [address] [place] [address] Phone: Referral ID Status Reason Start Date Expiration Date Visits V isits Requested Authorized [id number] Closed Specialty 08/05/2018 11/03/2018 1 1 Service Requested Reason for Visit Diagnostic Test (Routine) - Closed Specialty Diagnoses / Procedures Referred By Contact Refer red To Contact Radiology Diagnoses Low back pain, non-specific [facility] Sp[facility] 3d [facility] Rad Mri Procedures MRI Lumbar Spine wo Contrast (Generic) [place] [address] [place] [address] Phone: Referral ID Status Reason Start Date Expiration Date Visits V isits Requested Authorized [id number] Closed Specialty 08/05/2018 11/03/2018 1 1 Service Requested Encounter Details Date Type Department Care Team Description 08/12/2018 Hospital Encounter MRI at [facility] Simone Oviedo, [facility] Medical Anabel Granger MD non-specific Drive [place], [place] CENTER [address] SP[facility] [phone] [place] [address] Social History Tobacco Use Types Packs/Day Years Used Date Never Smoker Smokeless Tobacco: Never Used Sex Assigned at Date Recorded Not on file documented as of this encounter Medications at Time of Discharge Medication Sig Dispensed Refills Start Date End Date ibuprofen (ADVIL;MOTRIN) Take 400 mg by 0 200 mg Tablet mouth as needed for Pain. CONCERTA 54 mg Tablet 1 tablet 2 times 0 06/15/20 18 Extended Rel 24 hr daily. cyclobenzaprine (FLEXERIL) Take 1 tablet by 30 tablet 0 09/08/2018 5 mg Tablet mouth nightly as needed (Can take one-half tablet if needed.). documented as of this encounter Plan of Treatment Not on filedocumented as of this encounter Procedures Procedure Name Priority Date/Time Associated Diagnosis Comme nts MRI LUMBAR SPINE Routine 08/12/2018 10:15 AM Low back pain, Re sumanth for this WITHOUT CONTRAST EST non-specific procedure a re in the results section. documented in this encounter Results MRI Lumbar Spine wo Contrast (Generic) (08/12/2018 10:15 AM EST) Anatomical Region Laterality Modality L-spine Magnetic Resonance Specimen (Source) Anatomical Location Collection Method / Collectio n Time Received Time / Laterality Volume Impressions 08/12/2018 5:15 PM EST 1. ??L4-L5 disc extrusion superimposed on mild annular bulge causing mild central canal stenosis and mild neural foraminal narrowing at L4-L5. 2. ??Large central disc extrusion at L5- S1 causing moderate central canal stenosis. Disc space narrowing and endpl ate proliferative change causing moderate to severe narrowing of the bila teral neural foramen. 3. ??Early disc degenerative changes at T11-T12, L4-5 and L5-S1.. Comment: The Following Findings Are So C ommon In People Without Low Back Pain That While We Report Their Presence, The y Must Be Interpreted With Caution And In Context Of The Clinical Situation (Re annabelle- Mio Et Al, Spine 2001). Findings: (Prevalence In Patients Withou t Low Back Pain), Disc Degeneration (Decreased T2 Signal, Height Loss, Bulge ) (91%), Disc T2-Signal Loss (83%), Disc Height Loss (56%), Disc Bulge (64%), Dis c Protrusion (32%), Annular Fissure (38%). I have personally reviewed the image(s) and the residents interpretation and agree with the findings, Claudy Granger MD at 08/12/2018 5:15 PM Narrative 08/12/2018 5:15 PM EST EXAMINATION: MRI LUMBAR SPINE WO CONTRAST (GENERIC) CLINICAL HISTORY: low back pain and left leg pain numbness and tingling TECHNIQUE: MRI of the lumbar spine performed withou t intravenous contrast administration. COMPARISON: Prior radiographs of the lumbar spine . FINDINGS: There is mild retrolisthesis of L4 on L5 . There is also mild retrolisthesis of L5 on S1. . Disc space narrowing and decreased T2 signal within the L4-L5 and L5-S1 disc spaces consistent with disc degenerative changes. There is disc space degenerative change with disc space narr owing and anterior proliferative and reactive changes at T11-T12. There is al so facet arthropathy at this level. . Vertebral body heights are preserved. No aggressive marrow lesions. No pars defects. The conus is normal in signal and termin ates at the L1 level. No abdominal aortic aneurysm. Unremarkable appearance of the prevertebral soft tissue structures. Findings at individual levels are as fol lows: T11-T12: There is mild right-sided bernard inal narrowing primarily due to facet arthropathy. No central canal stenosis o r left foraminal narrowing. T12-L1: No central canal or bilateral ne ural foraminal stenosis. L1-L2: No central canal and bilateral fo raminal stenosis. L2-L3: Mild annular disc bulge with mini mal effacement of the ventral thecal sac. No narrowing of the bilateral neura l foramen. Mild left-sided facet arthropathy. L3-L4: Annular disc bulge causes minimal effacement of the ventral thecal sac. No narrowing of the bilateral neural for amen. L4-L5: There is an annular disc bulge wi th a superimposed central disc extrusion with mild cranial and caudal migration. This results in mild effacement of the ventral thecal sac and mild narrowing of the bilateral neural foramen, right greater than left. L5-S1: Circumferential endplate prolifer ative change. There is a central disc extrusion with 8 mm of cranial migration and posterior displacement of the posterior longitudinal ligament. This re sults in moderate stenosis of the central canal at this level. There is mo derate to severe neural foraminal narrowing bilaterally. Procedure Note Claudy Chisholm MD - 08/12/2018Formatt ing of this note might be different from the original. EXAMINATION: MRI LUMBAR SPINE WO CONTRAS T (GENERIC) CLINICAL HISTORY: low back pain and left leg pain numbness and tingling TECHNIQUE: MRI of the lumbar spine performed withou t intravenous contrast administration. COMPARISON: Prior radiographs of the lumbar spine . FINDINGS: There is mild retrolisthesis of L4 on L5 . There is also mild retrolisthesis of L5 on S1. . Disc space narrowing and decreased T2 signal within the L4-L5 and L5-S1 disc spaces consistent with disc degenerative changes. There is disc space degenerative change with disc space narr owing and anterior proliferative and reactive changes at T11-T12. There is al so facet arthropathy at this level. . Vertebral body heights are preserved. No aggressive marrow lesions. No pars defects. The conus is normal in signal and termin ates at the L1 level. No abdominal aortic aneurysm. Unremarkable appearance of the prevertebral soft tissue structures. Findings at individual levels are as fol lows: T11-T12: There is mild right-sided bernard inal narrowing primarily due to facet arthropathy. No central canal stenosis o r left foraminal narrowing. T12-L1: No central canal or bilateral ne ural foraminal stenosis. L1-L2: No central canal and bilateral fo raminal stenosis. L2-L3: Mild annular disc bulge with mini mal effacement of the ventral thecal sac. No narrowing of the bilateral neura l foramen. Mild left-sided facet arthropathy. L3-L4: Annular disc bulge causes minimal effacement of the ventral thecal sac. No narrowing of the bilateral neural for amen. L4-L5: There is an annular disc bulge wi th a superimposed central disc extrusion with mild cranial and caudal migration. This results in mild effacement of the ventral thecal sac and mild narrowing of the bilateral neural foramen, right greater than left. L5-S1: Circumferential endplate prolifer ative change. There is a central disc extrusion with 8 mm of cranial migration and posterior displacement of the posterior longitudinal ligament. This re sults in moderate stenosis of the central canal at this level. There is mo derate to severe neural foraminal narrowing bilaterally. IMPRESSION 1. L4-L5 disc extrusion superimposed on mild annular bulge causing mild central canal stenosis and mild neural foraminal narrowing at L4-L5. 2. Large central disc extrusion at L5-S1 causing moderate central canal stenosis. Disc space narrowing and endpl ate proliferative change causing moderate to severe narrowing of the bila teral neural foramen. 3. Early disc degenerative changes at T1 1-T12, L4-5 and L5-S1.. Comment: The Following Findings Are So C ommon In People Without Low Back Pain That While We Report Their Presence, The y Must Be Interpreted With Caution And In Context Of The Clinical Situation (Re ference- Jarvik Et Al, Spine 2001). Findings: (Prevalence In Patients Withou t Low Back Pain), Disc Degeneration (Decreased T2 Signal, Height Loss, Bulge ) (91%), Disc T2-Signal Loss (83%), Disc Height Loss (56%), Disc Bulge (64%), Dis c Protrusion (32%), Annular Fissure (38%). I have personally reviewed the image(s) and the residents interpretation and agree with the findings, Claudy Granger MD at 08/12/2018 5:15 PM Simone Oviedo MD IMG MRI ORDERABLES documented in this encounter Visit Diagnoses Diagnosis Low back pain, non-specific documented in this encounter Care Teams Nutritional Services Host Relationship Specialty Start Date End Date Nell Wesley MD PCP - General Pediatrics 11/20/17 [address] [place] [address] documented as of this encounter
--- OUTSIDE RECORDS SUMMARY | 2022-04-07 19:42 | XMS_ITS | Encounter Summary ---
:2000 Author Organization [facility] [place] [address] Care Team Providers Name Role Phone Nell Wesley MD Primary Care Provider Reason for Referral Diagnostic Test (Routine) - Closed Specialty Diagnoses / Procedures Referred By Contact Refer red To Contact Radiology Diagnoses Low back pain, non-specific [facility] 3[facility] Rad Mri Procedures MRI Lumbar Spine wo Contrast (Generic) [place] [address] [place] [address] Phone: Referral ID Status Reason Start Date Expiration Date Visits V isits Requested Authorized [id number] Closed Specialty 08/05/2018 11/03/2018 1 1 Service Requested Encounter Details Date Type Department Care Team Description 07/28/2018 Telephone [facility] [place] [address] Social History Tobacco Use Types Packs/Day Years Used Date Never Smoker Smokeless Tobacco: Never Used Sex Assigned at Date Recorded Not on file documented as of this encounter Miscellaneous Notes Telephone Encounter - Roma Betancur LPN - 07/28/2018 4:21 PM EST Mom called to report Brijesh is not any better with low back pain and left leg numbness and tingling.Per Mr. Foster note, next step is a non contrast MRI, safety questions asked and order placed. Call transferred to schedulers. documented in this encounter Plan of Treatment Not on filedocumented as of this encounter Results MRI Lumbar Spine wo [...] In Context Of The Clinical Situation (Re tessieence- Jarvik Et Al, Spine 2001). Findings: (Prevalence [...] In Context Of The Clinical Situation (Re yolande Lieberman Et Al, Spine 2001). Findings: (Prevalence In [...] Visit Diagnoses Diagnosis Low back pain, non-specific Low back pain, non-specific documented in this encounter Care Teams Track Inspecting Supervisor Relationship Specialty Start Date End Date Nell Wesley MD PCP - General Pediatrics 11/20/17 [address] [facility] [place] [address] documented as of this encounter
--- OUTSIDE RECORDS SUMMARY | 2022-04-07 19:42 | XMS_ITS | Encounter Summary ---
:2000 [place] [address] Care Team Providers Name Role Phone Nell Wesley MD Primary Care Provider Encounter Details Date Type Department Care Team Description 08/13/2018 Ancillary Procedure Pain Management at [facility] AT [facility] Queenie Pressley MD Pain [facility] [place] [address] PAIN MANAGEMENT [phone] [place], [place] [address] (Wo rk) Social History Tobacco Use Types Packs/Day Years Used Date Never Smoker Smokeless Tobacco: Never Used Sex Assigned at Date Recorded Not on file documented as of this encounter Plan of Treatment Pending Results Name Type Priority Associated Diagnoses Date/Ti me Film Library- Imaging Storage Routine Pain 08/12/2018 12:43 PM Storage Only pain Only EST Clinic C-Arm documented as of this encounter Visit Diagnoses Diagnosis Pain Generalized pain documented in this encounter Care Teams Material Scheduler Relationship Specialty Start Date End Date Nell Wesley MD PCP - General Pediatrics 11/20/17 [address] [place] [address] documented as of this encounter
--- NOTE | 2022-04-07 19:45 | RT.EKG_ITS ---
APPROVED REPORT Exam: Resting ECG Reason for Exam: chest pain Patient Location: E HR:92 bpm ECG Measurements Heart Rate 92 AXIS AL 167 P 41 QRSd 95 QRS 21 QT 331 T 26 QTc 411 Conclusion Sinus rhythm...normal P axis, V-rate 60- 99 Low voltage, precordial leads...precordial leads <1.0mV. Sinus. Normal axis. No STEMI. I have reviewed and interpreted ECG and agree with software generated interpretation.
--- NOTE | 2022-04-07 20:00 | DI.RAD_ITS ---
Exam(s) XR CHEST 2V PA LATERAL EXAM: XR CHEST 2V PA LATERAL CLINICAL HISTORY: Chest pain TECHNIQUE: 2D digital imaging was performed of the chest. Two images were obtained. PA and lateral views were obtained. COMPARISON: No exams were available for comparison FINDINGS: MEDIASTINUM: Normal. HEART: Normal. PULMONARY VASCULATURE: Normal. LUNGS: Clear. PLEURAL SPACE: No pleural effusion or pneumothorax. BONE:Within normal limits for the patient's age. OTHER FINDINGS:Normal. IMPRESSION: No acute pulmonary findings. DATA REPOSITORY: RADIATION DOSE DELIVERED:
--- NOTE | 2022-04-07 20:08 | ED.GENADUL_ITS ---
Discharge Plan Disposition Patient Disposition: HOME Condition: Stable Discharge Details Clinical Impression: Chest pain Primary Care Provider: Rei Quintero ED Provider: Malia Burleson Home Meds and New Rx's Prescriptions: No Action methylphenidate HCl [Concerta] 54 mg tablet extended release 24hr 1 tab PO DAILY Label Comments: TAKE ONE TABLET BY MOUTH EVERY DAY Discharge Instructions Instructions: Chest Pain (ED) Additional Instructions: At this time cardiac work-up is within normal limits. No evidence of pneumonia on the chest x-ray. [place] test is also negative. At this time I am not sure what is causing your symptoms however you may be dehydrated. Follow up with primary care provider in 3-5 days. Return to ED sooner if any worsening or concerns. Increase oral fluids. Please take Tylenol or Ibuprofen with food every 4-6 hours as needed for pain and swelling. Referrals: Rei Quintero [Primary Care Provider] - 5 days Medical Decision Making Cardiac work-up ordered including troponin. EKG. CBC shows no leukocytosis, CMP shows glucose 136, initial troponin within normal limits. [place] is negative. Chest x-ray is within normal limits Discussed results with patient who verbalized understanding. At this time patient is safe for the to be discharged home. Discussed follow-up care strict return instructions. This text was generated using [employer] dictation system, please disregard any oddities of phrase or misspellings. Imaging Data Radiologic Study: Imaging: X-Ray Radiologist's impression: TECHNIQUE: Imaging protocol: Radiologic exam of the chest. Views: 2 views. COMPARISON: No relevant prior studies available. FINDINGS: Lungs: Mildly low lung volumes. No consolidation. Pleural spaces: Unremarkable. No pleural effusion. No pneumothorax. Heart/Mediastinum: Unremarkable. No cardiomegaly. Bones/joints: Unremarkable. IMPRESSION: No acute findings. Thank you for allowing us to participate in the care of your patient. Dictated and Authenticated by: Vadim Roblero MD Lab Data Lab results reviewed: Yes I reviewed the patient's lab results. Labs: Laboratory Tests Range/Units 04/07/22 04/07/22 04/07/22 20:05 20:05 20:05 WBC (4.4-10.8) 10^3/uL 10.23 RBC (4.36-5.78) 10^6/uL 5.11 Hgb (13.5-17.5) g/dL 14.5 Hct (40.0-50.0) % 43.7 MCV (80-95) fL 86 MCH (27.0-33.0) pg 28.4 MCHC (32.0-36.0) % 33.2 RDW (11.8-14.1) % 12.6 Plt Count (130-400) 10^3/uL 266 MPV (8.0-11.0) fL 10.6 Immature Gran % 0.2 Neutrophils % 63.7 Lymphocytes % 24.6 Monocytes % 5.9 Eosinophils % 5.3 Basophils % 0.3 Nucleated RBC % (0.0-0.3) % 0.0 Absolute Neutrophils (1.2-6.7) 10^3/uL 6.52 Absolute Lymphocytes (1.2-3.4) 10^3/uL 2.52 Absolute Monocytes (0.1-0.8) 10^3/uL 0.60 Absolute Eosinophils (0.0-0.7) 10^3/uL 0.54 Absolute Basophils (0.0-0.2) 10^3/uL 0.03 Sodium (136-145) mmol/L 139 Potassium (3.5-5.1) mmol/L 3.5 Chloride (98-107) mmol/L 101 Carbon Dioxide (21.0-32.0) mmol/L 27.5 Anion Gap (3-11) mmol/L 10.5 BUN (7-18) mg/dL 16 Creatinine (0.70-1.30) mg/dL 1.0 Estimated GFR/1.73 m2 (mL/min/1.73m2) >= 60.00 Glucose (74-106) mg/dL 136 H Calcium (8.5-10.1) mg/dL 9.0 Magnesium (1.8-2.4) mg/dL 1.9 Total Bilirubin (0.2-1.0) mg/dL 0.4 AST (15-37) U/L 17 ALT (16-63) U/L 45 Alkaline Phosphatase (46-116) U/L 87 Troponin I (<or=60) ng/L < 50 Total Protein (6.4-8.2) g/dL 7.9 Albumin (3.4-5.0) g/dL 3.6 Monoscreen (Negative) Negative Range/Units 04/07/22 22:48 WBC (4.4-10.8) 10^3/uL RBC (4.36-5.78) 10^6/uL Hgb (13.5-17.5) g/dL Hct (40.0-50.0) % MCV (80-95) fL MCH (27.0-33.0) pg MCHC (32.0-36.0) % RDW (11.8-14.1) % Plt Count (130-400) 10^3/uL MPV (8.0-11.0) fL Immature Gran % Neutrophils % Lymphocytes % Monocytes % Eosinophils % Basophils % Nucleated RBC % (0.0-0.3) % Absolute Neutrophils (1.2-6.7) 10^3/uL Absolute Lymphocytes (1.2-3.4) 10^3/uL Absolute Monocytes (0.1-0.8) 10^3/uL Absolute Eosinophils (0.0-0.7) 10^3/uL Absolute Basophils (0.0-0.2) 10^3/uL Sodium (136-145) mmol/L Potassium (3.5-5.1) mmol/L Chloride (98-107) mmol/L Carbon Dioxide (21.0-32.0) mmol/L Anion Gap (3-11) mmol/L BUN (7-18) mg/dL Creatinine (0.70-1.30) mg/dL Estimated GFR/1.73 m2 (mL/min/1.73m2) Glucose (74-106) mg/dL Calcium (8.5-10.1) mg/dL Magnesium (1.8-2.4) mg/dL Total Bilirubin (0.2-1.0) mg/dL AST (15-37) U/L ALT (16-63) U/L Alkaline Phosphatase (46-116) U/L Troponin I (<or=60) ng/L Cancelled Total Protein (6.4-8.2) g/dL Albumin (3.4-5.0) g/dL Monoscreen (Negative) HPI General Mode of arrival: ambulatory . Date/Time Provider Initiated Documentation: 04/07/22 19:40 . Limitations to Documentation: no limitations . Information obtained by: patient, RN notes reviewed and old records reviewed . HPI Narrative: 21-year-old male presents to the ER with chief complaint of midsternal chest pain since Friday. He also reports some increased fatigue, body aches and headache. He was recently seen at [facility] on Friday and had a negative work-up. Negative COVID test at that time. He denies any vomiting diarrhea. Denies any dysuria. Denies any cough or shortness of breath. He reports nausea on Friday which has since resolved. Related Data Home Medications Medication Instructions Recorded Confirmed methylphenidate HCl 54 mg 1 tab PO DAILY 04/07/22 04/07/22 tablet,extended release 24 hr (Concerta) Allergies Allergy/AdvReac Type Severity Reaction Status Date / Time amoxicillin [Amoxicillin] Allergy Mild Skin Rash Verified 04/07/22 19:47 General Stated Complaint: Chest Pain NAVID: 3 Review of Systems All systems reviewed & are unremarkable except as noted in HPI and below Constitutional Constitutional: Reports as per HPI, Reports body ache(s), Reports fatigue, Reports headache(s) and Reports lethargy ENT Ears, Nose, Mouth, and Throat: Reports headache(s) Cardiovascular Cardiovascular: Reports as per HPI, Reports chest pain, Reports syncope ( reports 2 weeks ago from the heat), Reports lightheadedness and Denies dyspnea Respiratory Respiratory: Denies dyspnea Neurologic Neurologic: Reports syncope ( reports 2 weeks ago from the heat) and Reports headache(s) Endocrine Endocrine: Reports fatigue PFSH All Active Problems (Updated 04/07/22 @ 21:31 by Malia Burleson NP) Laceration of finger nail bed (Acute) Avulsion of nail (Acute) Finger laceration (Acute) Chest pain (Acute) Back pain (Acute) Body aches (Acute) Medical History ADD (attention deficit disorder) Surgical History No significant past surgical history Social History Smoking/Tobacco Use Status: Never Smoking risk assessment performed?: Yes Alcohol Intake: never Drug use: Never Substance use type: does not use Current gender identity: male Do you feel safe at home: Yes Do you feel safe in your relationship?: Yes Exam Narrative Exam Narrative: Constitutional: Alert and oriented x3. Appears stated age. Obese body habitus. Head: Normocephalic, no trauma. Eyes: Pupils PERRL, Red reflex noted, EOM's intact. Eyelids symmetrical without lesions, discharge, or swelling. ENT: Bilateral TM's WNL, External ear normal to inspection, no mastoid TTP, swelling, or erythema, Nasal turbinates WNL, no nasal discharge. Normal dentition, Posterior pharynx WNL, no exudate. Chest: RRR, Normal S1, S2, distal pulses intact. Resp: Lungs clear to auscultation bilaterally, no wheezes, rales, or rhonchi. Abdomen: Soft, non-distended, Normoactive bowel sounds all 4 quads. Musculoskeletal: Normal gait, 5/5 strength to all four extremities. Skin: No suspicious rashes or lesions. Capillary refill less than 2 sec. Neurologic: Cranial nerves II-XII intact. Alert and oriented x 3. Motor: No deficits noted. Sensory: Intact bilaterally all 4 extremities. Reflexes: DTR's intact bilaterally.. Hematologic/Lymphatic: No ecchymosis, no lymphadenopathy. Course Vital Signs Vital signs: Vital Signs Temperature 36.8 C 04/07/22 19:44 Pulse 101 H 04/07/22 19:44 Respiratory Rate 18 04/07/22 19:44 Blood Pressure 147/79 H 04/07/22 19:44 Pulse Oximetry 97 04/07/22 19:44 Temperature 36.8 C 04/07/22 19:44 Temperature Source Skin 04/07/22 19:44 Pulse 101 H 04/07/22 19:44 Respiratory Rate 16 04/07/22 19:47 Respiratory Effort 04/07/22 19:47 Respiratory Depth Normal 04/07/22 19:47 Respiratory Pattern Normal 04/07/22 19:47 Blood Pressure 147/79 H 04/07/22 19:44 Pulse Oximetry 97 04/07/22 19:44 Pain Level 7 04/07/22 19:44
[2022-04-07 20:13] LABS: Abs Immature Grans 0.02 10^3/uL (0.0-0.06); Absolute Basophil Count 0.03 10^3/uL (0.0-0.2); Absolute Eosinophil Count 0.54 10^3/uL (0.0-0.7); Absolute Lymphocyte Count 2.52 10^3/uL (1.2-3.4); Absolute Neutrophil Count 6.52 10^3/uL (1.2-6.7); Basophils % 0.3; Eosinophils % 5.3; HCT 43.7 % (40.0-50.0); HGB 14.5 g/dL (13.5-17.5); Immature Grans % 0.2; Lymphocytes % 24.6; MCH 28.4 pg (27.0-33.0); MCHC 33.2 % (32.0-36.0); MCV 86 fL (80-95); MPV 10.6 fL (8.0-11.0); Monocytes % 5.9; Neutrophils % 63.7; Platelet Count 266 10^3/uL (130-400); RBC 5.11 10^6/uL (4.36-5.78); RDW 12.6 % (11.8-14.1); RDW-SD 38.9 fL; WBC 10.23 10^3/uL (4.4-10.8)
[2022-04-07] MEDS: Aspirin 81 MG CHEW 324 MG CH (20:18)
[2022-04-07 20:31] LABS: ALT 45 U/L (16-63); AST 17 U/L (15-37); Albumin 3.6 g/dL (3.4-5.0); Alkaline Phosphatase 87 U/L (46-116); Anion Gap 10.5 mmol/L (3-11); BUN 16 mg/dL (7-18); Bilirubin, Total 0.4 mg/dL (0.2-1.0); CO2 27.5 mmol/L (21.0-32.0); Chloride 101 mmol/L (98-107); Glucose 136 mg/dL (74-106); Magnesium 1.9 mg/dL (1.8-2.4); Potassium 3.5 mmol/L (3.5-5.1); Sodium 139 mmol/L (136-145); Total Protein 7.9 g/dL (6.4-8.2); Troponin I < 50 ng/L (<or=60)
[2022-04-07 20:36] LABS: Mono Screening Negative (Negative)
--- NOTE | 2022-04-07 21:07 | DI.VRAD_ITS ---
PROCEDURE INFORMATION: Exam: XR Chest Exam date and time: 04/07/2022 8:44 PM Age: 21 years old Clinical indication: Other: Chest pain TECHNIQUE: Imaging protocol: Radiologic exam of the chest. Views: 2 views. COMPARISON: No relevant prior studies available. FINDINGS: Lungs: Mildly low lung volumes. No consolidation. Pleural spaces: Unremarkable. No pleural effusion. No pneumothorax. Heart/Mediastinum: Unremarkable. No cardiomegaly. Bones/joints: Unremarkable. IMPRESSION: No acute findings. Dictated and Authenticated by: Vadim Roblero MD. Ordering:SYL Finley MD
== END 2022-04-07 21:45 | disposition home or self-care (01) ==
PROVIDERS: Emergency Provider Registered Nurse Emergency; PCP Physician Assistant
DX: R07.9 Chest pain, unspecified (principal)
CPT/HCPCS: 80053; 93005; 99284; 71046; 83735; 84484; 85025; 86308; 93010

== ENCOUNTER 2022-05-09 09:59 | Emergency (ER) | payer MEDICAID, SELFPAY ==
[2022-05-09 10:03] VITALS: BP 119/76; PULSE 75; RESP 17; TEMP 36.7; O2SAT 97
--- NOTE | 2022-05-09 10:26 | W.ED.GENAD ---
Discharge Plan Disposition Patient Disposition: HOME Condition: Stable Discharge Details Clinical Impression: Back pain Primary Care Provider: Rei Quintero ED Provider: Austin Roth Home Meds and New Rx's Prescriptions: New diclofenac potassium 50 mg tablet 50 mg PO TID PRN (Reason: pain) Qty: 15 0RF Continued methylphenidate HCl [Concerta] 54 mg tablet extended release 24hr 1 tab PO DAILY Label Comments: TAKE ONE TABLET BY MOUTH EVERY DAY Discharge Instructions Instructions: Back Pain (ED) Additional Instructions: If you develop any new or significant worsening of symptoms feel free to return the emergency department for reassessment as discussed. Otherwise continue to perform gentle activity with minimizing heavy lifting bending and twisting until your symptoms have improved. If you are not improving in the next week please follow-up with your primary care provider. While on the prescribed pain medication do not take any other NSAIDs as this can cause significant GI adverse effects. You may continue to use acetaminophen along with this medication if needed. Stand Alone Forms: Work Release Referrals: Rei Quintero [Primary Care Provider] - 1 week Discharge Data Discharge Date/Time-TO BE ENTERED AT DEPARTURE: 05/09/22 10:58 Medical Decision Making Patient presenting to the emergency department for chief complaint of back pain. Patient reports this is been ongoing and intermittent for the past 3 years. Patient has been seen at [facility] and had CT and MRI imaging and told he had bulging disc. Patient was nonsurgical due to significant obesity and has otherwise treated episodes with Tylenol and ibuprofen. This episode has been going on for the last week and seems to be exacerbated by the fact that yesterday while at work he lifted a heavy object that worsened his back pain. Physical exam shows paraspinal tenderness to the left lumbar region along with very mild mid lumbar reported tenderness but not much appreciated on exam. Otherwise patient is ambulatory with unremarkable exam. LOW risk for ABDOMINAL AORTIC ANEURYSM, CAUDA EQUINA SYNDROME, EPIDURAL MASS LESION, SPINAL STENOSIS, OR HERNIATED DISK CAUSING SEVERE STENOSIS, thus I consider the discharge disposition reasonable. We have discussed the diagnosis and risks, and we agree with discharging home to follow-up with their primary doctor. We also discussed returning to the Emergency Department immediately if new or worsening symptoms occur. We have discussed the symptoms which are most concerning (e.g., saddle anesthesia, urinary or bowel incontinence or retention, changing or worsening pain) that necessitate immediate return. Patient does state previous steroid injection did seem to help his pain so we will give IM Decadron and prescribed NSAID. Patient to follow-up with primary care provider for reassessment in 1 week to see if he is improving. The patient has not improving would possibly consider recommendation for pain clinic follow-up for spinal injections as needed. Did discuss with patient weight loss as I feel this is a significant contributing factor. After discussion of diagnosis and plan of care patient has no further needs, questions, or concerns and states clear understanding to return to the emergency department for any worsening symptoms. This documentation was generated using [employer] system, please disregard any oddities of phrase or misspellings. HPI General Mode of arrival: ambulatory. Date/Time Provider Initiated Documentation: 05/09/22 09:59. Limitations to Documentation: no limitations. Information obtained by: patient and RN notes reviewed. History of Present Illness 21 year old M presents to the emergency department with the chief complaint of Back pain, described as moderate, with intensity rated at 6. Quality is described as aching and sharp, and is localized to the back. Patient extremity (left). Patient started experiencing this week(s) (1) and it has been constant. Rest improves symptom(s), Movement worsens symptoms . Patient notes no other symptoms.. Patient did receive the following treatments prior to arrival, NSAID (Yesterday evening) Related Data Home Medications Medication Instructions Recorded Confirmed methylphenidate HCl 54 mg 1 tab PO DAILY 04/07/22 04/07/22 tablet,extended release 24 hr (Concerta) diclofenac potassium 50 mg tablet 50 mg PO TID PRN pain #15 tabs 05/09/22 Previous Rx's Medication Instructions Recorded diclofenac potassium 50 mg tablet 50 mg PO TID PRN pain #15 tabs 05/09/22 Allergies Allergy/AdvReac Type Severity Reaction Status Date / Time amoxicillin [Amoxicillin] Allergy Mild Skin Rash Verified 04/07/22 19:47 General Stated Complaint: Nk/Back Pain NAVID: 4 Review of Systems Constitutional Constitutional: Denies chills and Denies fever(s) Cardiovascular Cardiovascular: Denies chest pain and Denies dyspnea on exertion Respiratory Respiratory: Denies cough and Denies dyspnea on exertion Gastrointestinal Gastrointestinal: Denies abdominal pain, Denies change in bowel habits, Denies diarrhea, Denies nausea and Denies vomiting Genitourinary Genitourinary: Denies difficulty urinating and Denies urinary incontinence Musculoskeletal Musculoskeletal: Reports as per HPI and Reports back pain Neurologic Neurologic: Denies sensory deficit PFSH All Active Problems (Updated 05/09/22 @ 10:31 by Austin Roth NP) Laceration of finger nail bed (Acute) Avulsion of nail (Acute) Finger laceration (Acute) Back pain (Acute) Body aches (Acute) Medical History ADD (attention deficit disorder) Surgical History No significant past surgical history Social History Smoking/Tobacco Use Status: Current-Occasional Tobacco Type: smokeless tobacco Smoking risk assessment performed?: Yes Alcohol Intake: never Drug use: Never Substance use type: does not use Current gender identity: male Do you feel safe at home: Yes Do you feel safe in your relationship?: Yes Exam Const General: cooperative and no acute distress Nutritional Appearance: obese Orientation: alert, awake and oriented x3 Neck Neck: normal visual inspection, full ROM and no meningeal signs Resp Effort & Inspection: normal respiratory effort Auscultation: clear to auscultation bilaterally Cardio Rate: regular rate Rhythm: regular rhythm Heart Sounds: S1 normal and S2 normal GI Inspection: obesity Back/Spine/Pelvis Thoracic/Lumbar Spine: pain with thoraco-lumbar ROM, paraspinal tenderness (Greater on left than right), thoraco-lumbar ROM limited, No thoracic spinal tenderness and lumbar spinal tenderness (Mild mid lumbar) Pelvis: no pain with anterior-posterior compression and no pain with lateral compression Neuro General: patient alert, patient awake and patient oriented x3 DTR's: Rt Patellar: 2+ and Lt Patellar: 2+ Course Vital Signs Vital signs: Vital Signs Temperature 36.7 C 05/09/22 10:03 Pulse 75 05/09/22 10:03 Respiratory Rate 17 05/09/22 10:03 Blood Pressure 119/76 05/09/22 10:03 Pulse Oximetry 97 05/09/22 10:03 Temperature 36.7 C 05/09/22 10:03 Temperature Source Temporal Artery Scan 05/09/22 10:03 Pulse 75 05/09/22 10:03 Respiratory Rate 17 05/09/22 10:03 Blood Pressure 119/76 05/09/22 10:03 Blood Pressure Position Sitting 05/09/22 10:03 Pulse Oximetry 97 05/09/22 10:03 Oxygen Delivery Method Room Air 05/09/22 10:03 Oxygen Flow Rate 0 05/09/22 10:03 Pain Level 6 05/09/22 10:03
[2022-05-09] MEDS: Dexamethasone 10 MG/ML VIAL IM (10:37)
== END 2022-05-09 10:58 | disposition home or self-care (01) ==
PROVIDERS: Emergency Provider Nurse Practitioner Family; PCP Physician Assistant
DX: M54.50 Low back pain, unspecified (principal); M54.6 Pain in thoracic spine; F17.290 Nicotine dependence, other tobacco product, uncomplicated
CPT/HCPCS: 96372; 99284; J1100

== ENCOUNTER 2023-03-29 13:04 | Emergency (ER) | payer MEDICAID, SELFPAY ==
[2023-03-29 13:12] VITALS: BP 123/70; PULSE 94; RESP 18; TEMP 36.3; O2SAT 96
--- NOTE | 2023-03-29 14:07 | DI.RAD_ITS ---
Exam(s) XR ANKLE RT COMPLETE EXAM: XR ANKLE RT COMPLETE CLINICAL HISTORY: fall. TECHNIQUE: 2D digital imaging was performed. Three views. COMPARISON: CR XR ANKLE LT COMPLETE from 04/12/2020 FINDINGS: BONES: No acute fracture is present. No bony destructive lesion is seen. JOINTS: The ankle mortise is normally aligned. SOFT TISSUE: Normal. IMPRESSION: Unremarkable radiographs of the right ankle. DATA REPOSITORY: RADIATION DOSE DELIVERED:
--- NOTE | 2023-03-29 14:16 | ED.GENADUL_ITS ---
Discharge Plan Disposition Patient Disposition: Home Discharge Details Clinical Impression: Right ankle sprain Primary Care Provider: Rei Quintero ED Provider: Austin Roth Home Meds and New Rx's Prescriptions: No Action methylphenidate HCl [Concerta] 54 mg tablet extended release 24hr 1 tab PO DAILY Patient Comments: TAKE ONE TABLET BY MOUTH EVERY DAY diclofenac potassium 50 mg tablet 50 mg PO TID PRN (Reason: pain) Qty: 15 0RF Patient Comments: PT not taking Ozempic 1 mg/dose (4 mg/3 mL) pen injector SUBCUT Discharge Instructions Instructions: Ankle Sprain (ED), R.I.C.E. Treatment (ED) Additional Instructions: Please rest over the next 2 to 3 days and then slowly increase activity as tolerated by pain or discomfort. If not improving the next 2 weeks please follow-up with your primary care provider for reassessment or return for any new or significant worsening symptoms. You may continue to use [id number] pain medication such as Tylenol or ibuprofen as needed for discomfort. Just take as directed on packaging Stand Alone Forms: Work Release Referrals: Rei Quintero [Primary Care Provider] - (As needed for reassessment) Discharge Data Discharge Date/Time-TO BE ENTERED AT DEPARTURE: 03/29/23 15:27 Medical Decision Making Patient presenting the emergency department for chief complaint of right ankle injury. Patient reports last night he had a trip and fall with a significant pop. Patient denies any other injury or trauma. Patient does state he had some weightbearing of extremity but very painful. Physical exam shows more lateral tenderness and swelling but does have some medial swelling and slight tenderness as well. Patient does have painful range of motion but range of motion is full and intact. I suspect strain but given that patient is 140 kg and her audible snap and pop with difficulty weightbearing will perform radiological imaging. Patient denies any need for pain medication pending results. Review of radiological imaging and radiology interpretation shows no acute findings. Will place patient in a lace up ankle brace and will recommend conservative management. Patient to follow-up with primary care provider if not improving. After discussion of diagnosis and plan of care patient has no further needs, questions, or concerns and states clear understanding to return to the emergency department for any worsening symptoms. This documentation was generated using [employer] system, please disregard any oddities of phrase or misspellings. Imaging Data Radiologic Study: Imaging: X-Ray Radiologist's impression: Exam(s) PROCEDURE INFORMATION: Exam: XR Right Ankle Exam date and time: 03/29/2023 2:14 PM Age: 22 years old Clinical indication: Other: Fall TECHNIQUE: Imaging protocol: Radiologic exam of the right ankle. Views: 3 or more views. COMPARISON: No relevant prior studies available. FINDINGS: Bones/joints: Normal. Soft tissues: Soft tissue swelling. IMPRESSION: No fracture. HPI General Mode of arrival: ambulatory . Date/Time Provider Initiated Documentation: 03/29/23 13:20 . Limitations to Documentation: no limitations . Information obtained by: patient and RN notes reviewed . History of Present Illness 22 year old M presents to the emergency department with the chief complaint of Fall with right ankle injury, described as moderate, and is localized to the right and lower extremity. Patient started experiencing this day(s) (1) and it has been constant. No relieving factors improve symptom(s), No exacerbating factors reported . Patient notes no other symptoms.. Patient did receive the following treatments prior to arrival, none Related Data Home Medications Medication Instructions Recorded Confirmed methylphenidate HCl 54 mg 1 tab PO DAILY 04/07/22 04/07/22 tablet,extended release 24 hr (Concerta) diclofenac potassium 50 mg tablet 50 mg PO TID PRN pain #15 tabs 05/09/22 semaglutide 1 mg/dose (4 mg/3 mL) mg subcut 03/29/23 03/29/23 subcutaneous pen injector (Ozempic) Previous Rx's Medication Instructions Recorded diclofenac potassium 50 mg tablet 50 mg PO TID PRN pain #15 tabs 05/09/22 Allergies Allergy/AdvReac Type Severity Reaction Status Date / Time amoxicillin [Amoxicillin] Allergy Mild Skin Rash Verified 04/07/22 19:47 General Stated Complaint: Orthopedic NAVID: 4 Review of Systems Narrative: 6 systems reviewed and unremarkable except what is marked below. Musculoskeletal Musculoskeletal: Reports as per HPI, Reports arthralgias, Reports joint swelling, Denies numbness and Denies tingling Neurologic Neurologic: Denies numbness and Denies tingling PFSH All Active Problems (Updated 03/29/23 @ 14:54 by Austin Roth NP) Laceration of finger nail bed (Acute) Avulsion of nail (Acute) Finger laceration (Acute) Right ankle sprain (Acute) Back pain (Acute) Body aches (Acute) Medical History ADD (attention deficit disorder) Surgical History No significant past surgical history Social History Smoking/Tobacco Use Status: Current-Occasional Tobacco Type: smokeless tobacco Smoking risk assessment performed?: Yes Alcohol Intake: never Drug use: Never Substance use type: does not use Current gender identity: male Do you feel safe at home: Yes Do you feel safe in your relationship?: Yes Exam Const General: cooperative, no acute distress and not ill appearing Orientation: alert, awake and oriented x3 HENMT Mouth: moist mucous membranes Resp Effort & Inspection: normal respiratory effort, able to speak in complete sentences and no respiratory distress Cardio Rate: regular rate Rhythm: regular rhythm Pulses: normal peripheral pulses Skin General skin exam: no rashes or lesions noted Neuro General: patient alert, patient awake, patient oriented x3, moves all extremities and no focal motor deficits Sensory Exam: no sensory deficits noted Extrem General: normal exam except as noted Right lower extremity: lower leg Details: normal to inspection; no tenderness, ankle Details: tenderness Location: of the lateral malleolus, swelling Details: laterally and medially and abnormal ROM Details: pain with active ROM and with range as follows (Full range of motion); no abrasions, no lacerations, no ecchymosis and achilles tendon exam normal and foot Details: toes with normal ROM, vascular exam Details: dorsalis pedis pulse present, posterior tibial pulse present and normal capillary refill and tendon exam Details: active flexion normal and active extension normal; no tenderness Course Vital Signs Vital signs: Vital Signs Temperature 36.3 C L 03/29/23 13:12 Pulse 94 H 03/29/23 13:12 Respiratory Rate 18 03/29/23 13:12 Blood Pressure 123/70 03/29/23 13:12 Pulse Oximetry 96 03/29/23 13:12 Temperature 36.3 C L 03/29/23 13:12 Temperature Source Skin 03/29/23 13:12 Pulse 94 H 03/29/23 13:12 Respiratory Rate 18 03/29/23 13:12 Blood Pressure 123/70 03/29/23 13:12 Blood Pressure Position Sitting 03/29/23 13:12 Pulse Oximetry 96 03/29/23 13:12 Oxygen Delivery Method Room Air 03/29/23 13:12 Oxygen Flow Rate 0 03/29/23 13:12 Pain Level 2 03/29/23 13:12 Comment WT bearing pain increases to a 7. 03/29/23 13:12
--- NOTE | 2023-03-29 14:34 | DI.VRAD_ITS ---
PROCEDURE INFORMATION: Exam: XR Right Ankle Exam date and time: 03/29/2023 2:14 PM Age: 22 years old Clinical indication: Other: Fall TECHNIQUE: Imaging protocol: Radiologic exam of the right ankle. Views: 3 or more views. COMPARISON: No relevant prior studies available. FINDINGS: Bones/joints: Normal. Soft tissues: Soft tissue swelling. IMPRESSION: No fracture. Dictated and Authenticated by: Truong Patel MD. Ordering:JEFFERSON Avila MD
== END 2023-03-29 15:27 | disposition home or self-care (01) ==
PROVIDERS: Emergency Provider Nurse Practitioner Family; PCP Physician Assistant
DX: S93.401A Sprain of unspecified ligament of right ankle, initial encounter (principal); X58.XXXA Exposure to other specified factors, initial encounter
CPT/HCPCS: 99283; 73610

== ENCOUNTER 2023-08-04 21:24 | Emergency (ER) | payer OTHER, SELFPAY ==
[2023-08-04 21:29] VITALS: BP 140/75; PULSE 100; RESP 14; TEMP 37; O2SAT 97
--- NOTE | 2023-08-04 21:30 | RT.EKG_ITS ---
APPROVED REPORT Exam: Resting ECG Reason for Exam: chest pain Patient Location: E HR:86 bpm ECG Measurements Heart Rate 86 AXIS TN 157 P 30 QRSd 100 QRS 4 QT 350 T 22 QTc 418 Conclusion Sinus rhythm...normal P axis, V-rate 60- 99 Normal sinus rhythm at a rate of 86 with interventricular conduction delay and a QRS of 100 ms. Left axis deviation no signs of LVH based on voltage criteria. T wave inversion in lead III. Compared t o prior dated last year QRS is lengthened and T wave inversion in lead III is new. No acute injury p ousmane.
[2023-08-04 21:50] VITALS: BP 140/75; PULSE 100; RESP 14; TEMP 37; O2SAT 97
--- NOTE | 2023-08-04 22:22 | W.ED.GENAD ---
Discharge Plan Disposition Patient Disposition: Home Discharge Details Chief Complaint: GenMedical Clinical Impression: URI, acute Primary Care Provider: Rei Quintero ED Provider: Tong Angel Home Meds and New Rx's Prescriptions: No Action methylphenidate HCl [Concerta] 54 mg tablet extended release 24hr 1 tab PO DAILY Patient Comments: TAKE ONE TABLET BY MOUTH EVERY DAY diclofenac potassium 50 mg tablet 50 mg PO TID PRN (Reason: pain) Qty: 15 0RF Patient Comments: PT not taking Ozempic 1 mg/dose (4 mg/3 mL) pen injector SUBCUT Discharge Instructions Instructions: Upper Respiratory Infection (ED) Additional Instructions: At this time your flu, COVID, and RSV are negative. At this time your symptoms do appear consistent with a viral etiology, and I suspect that another virus is causing your current symptoms. Your ultrasound shows no evidence of pneumonia at this time. You have no clinical evidence at this time of strep throat. Please take 800 mg of ibuprofen every 6 hours and 1000 mg of Tylenol every 6 hours as needed for pain and chills. These at the maximum doses. Drink 10 to 12 cups of water per day minimum to stay well-hydrated. If you notice any worsening of your symptoms, or any new symptoms such as vomiting, diarrhea, fever, chills, shortness of breath, chest pain, numbness, weakness, or fainting , please return immediately to the emergency department for reevaluation. Please follow up with your primary care provider as soon as possible for reassessment and reevaluation. As always, it was a pleasure participating in your medical care today. Referrals: Rei Quintero [Primary Care Provider] - Medical Decision Making 22-year-old male with a past medical history of BMI over 45, prediabetic, who has not received a flu or COVID-vaccine this year, presents today for evaluation of fever chills runny nose, aches, congestion, and mild cough. Symptoms began yesterday afternoon around 1 PM. Symptoms began with runny nose cough and congestion and chills. Later in the evening he developed mild achy chest pain which was worse with movement and use of his anterior chest muscles. He took Tylenol, 1 g and when he woke up symptoms were improved for the chest pain but he still had runny nose congestion and mild cough. That continued through today. He describes the chest pain as mild and achy currently, there was some sharpness earlier but no longer. No radiation to his arm neck or chest. He denies any exertional chest pain rather just chest pain with movement and muscular use. He states that he feels achy all over which is similar to his chest pain. Cough is nonproductive. He denies vomiting or diarrhea. Symptoms are improved with Tylenol. He has not had any Motrin. Physical exam demonstrates well-appearing male, No tachypnea or hypoxemia. Trace pericardial effusion noted on bedside ultrasound, no consolidation noted in the lungs. No pneumothorax. No pleural effusion. No clinical evidence of meningitis. EKG demonstrates no signs of right heart strain, no evidence of S1 Q 3 , heart rate is 86 on EKG. patient is PERC and Wells negative/low risk. Symptoms appear inconsistent with PE or dissection or ACS. Symptoms concerning for viral etiology. Less likely potential very mild pericarditis. No clinical evidence of tamponade whatsoever. Symptoms inconsistent with myocarditis, no malena tachycardia. Will give Toradol here, test for flu and COVID, give oral fluids, monitor closely and reassess. 11:12 PM COVID flu and RSV are negative, ultrasound shows no evidence of pneumonia, pneumothorax, or other concerning abnormality. Patient feels well with Toradol. Symptoms still appear consistent with viral etiology at this time. No clinical evidence of strep throat, pneumonia or other concerning etiology. No symptoms to suggest myocarditis. Recommend continued NSAIDs at home as well as fluid hydration. Discussed red flags for which to return. I have extensively reviewed the treatment plan and discharge instructions with the patient. I have addressed all patient concerns at this time. The patient was made aware of what symptoms to monitor for that would warrant a return to the emergency department. Discussed the plan with the patient, they demonstrate verbal understanding and agreement with our assessment and plan at this time. The documentation in this chart was dictated using [employer] dictation software. Please excuse any dictation errors. HPI General Date/Time Provider Initiated Documentation: 08/04/23 21:28. HPI Narrative: 22-year-old male with a past medical history of BMI over 45, prediabetic, who has not received a flu or COVID-vaccine this year, presents today for evaluation of fever chills runny nose, aches, congestion, and mild cough. Symptoms began yesterday afternoon around 1 PM. Symptoms began with runny nose cough and congestion and chills. Later in the evening he developed mild achy chest pain which was worse with movement and use of his anterior chest muscles. He took Tylenol, 1 g and when he woke up symptoms were improved for the chest pain but he still had runny nose congestion and mild cough. That continued through today. He describes the chest pain as mild and achy currently, there was some sharpness earlier but no longer. No radiation to his arm neck or chest. He denies any exertional chest pain rather just chest pain with movement and muscular use. He states that he feels achy all over which is similar to his chest pain. Cough is nonproductive. He denies vomiting or diarrhea. Symptoms are improved with Tylenol. He has not had any Motrin. Denies PE risk factors such as recent long car rides, immobilization, recent surgery, prior history of DVT or PE, family history of PE or DVT, morbid obesity, exogenous estrogen and smoking, hemoptysis, history of cancer. Related Data Home Medications Medication Instructions Recorded Confirmed methylphenidate HCl 54 mg 1 tab PO DAILY 04/07/22 04/07/22 tablet,extended release 24 hr (Concerta) diclofenac potassium 50 mg tablet 50 mg PO TID PRN pain #15 tabs 05/09/22 semaglutide 1 mg/dose (4 mg/3 mL) mg subcut 03/29/23 03/29/23 subcutaneous pen injector (Ozempic) Previous Rx's Medication Instructions Recorded diclofenac potassium 50 mg tablet 50 mg PO TID PRN pain #15 tabs 05/09/22 Allergies Allergy/AdvReac Type Severity Reaction Status Date / Time amoxicillin [Amoxicillin] Allergy Mild Skin Rash Verified 08/04/23 21:37 General Stated Complaint: GenMedical NAVID: 3 Review of Systems All systems reviewed & are unremarkable except as noted in HPI and below PFSH All Active Problems (Updated 08/04/23 @ 23:12 by Tong Angel DO) URI, acute (Acute) Finger laceration (Acute) Avulsion of nail (Acute) Laceration of finger nail bed (Acute) Back pain (Acute) Body aches (Acute) Medical History ADD (attention deficit disorder) Surgical History No significant past surgical history Social History Smoking/Tobacco Use Status: Current-Occasional Tobacco Type: smokeless tobacco Smoking risk assessment performed?: Yes Alcohol Intake: never Drug use: Never Substance use type: does not use Current gender identity: male Do you feel safe at home: Yes Do you feel safe in your relationship?: Yes Exam Narrative Exam Narrative: 1.Const: Well-nourished, Well-developed, appearing stated age 2.Eyes: PERRL, no conjunctival injection, and symmetrical lids. 3.ENT: Atraumatic external nose and ears. Moist MM. Neck: Symmetric, trachea midline, No thyromegaly. Patient demonstrates good movement of cervical neck. There is no nuchal rigidity, no nuchal tenderness. Patient is able to flex the neck without any difficulty or significant pain. Negative Kernig's and Brudzinski sign. No erythema in the posterior oropharynx 4.CVS: +S1/S2, Peripheral pulses 2+ and equal in all extremities. Brisk capillary refill in all extremities. 5.RESP: Unlabored respiratory effort. Clear to auscultation bilaterally. No wheezes rales or rhonchi 6.GI: Soft, Nontender/Nondistended, No hepatosplenomegaly. No guarding or rebound. 7.MSK: Normocephalic/Atraumatic, Extremities w/o deformity or ttp No cyanosis or clubbing, Normal movement of all extremities 8.Skin: Warm, Dry. No rashes or lesions. 9.Neuro: network infrastructure architect II-XII grossly intact. Sensation grossly intact, no focal neurologic deficits. 10.Psych: (AAO) x3. Appropriate mood and affect Course Vital Signs Vital signs: Vital Signs Temperature 37 C 08/04/23 21:29 Pulse 100 H 08/04/23 21:29 Respiratory Rate 14 08/04/23 21:29 Blood Pressure 140/75 08/04/23 21:29 Pulse Oximetry 97 08/04/23 21:29 Temperature 37 C 08/04/23 21:50 Temperature Source Temporal Artery Scan 08/04/23 21:50 Pulse 100 H 08/04/23 21:50 Respiratory Rate 14 08/04/23 21:50 Respiratory Effort Normal, Non-Labored 08/04/23 21:38 Blood Pressure 140/75 08/04/23 21:50 Blood Pressure Position Sitting 08/04/23 21:50 Pulse Oximetry 97 08/04/23 21:50 Oxygen Delivery Method Room Air 08/04/23 21:50 Oxygen Flow Rate 0 08/04/23 21:29 Pain Level 6 08/04/23 21:50 POCUS Exam (ED) Limited Cardiac Exam DATE OF EXAM: 08/04/23 TIME OF EXAM: 22:23 PROVIDER THAT PERFORMED THE STUDY: Tong Angel IS THIS A REPEAT EXAM DURING THIS ENCOUNTER: no REASON FOR EXAM: Chest pain VISUALIZED STRUCTURES: Left atrium, Left ventricle, Right ventricle and Interventricular septum VIEW OBTAINED: Parasternal long-axis PERTINENT FINDINGS/IMPRESSION: No apparent abnormalities and Pericardial effusion (Trace pericardial effusion) Exam complete Limited Thoracic Lung Exam DATE OF EXAM: 08/04/23 TIME OF EXAM: 22:24 PROVIDER THAT PERFORMED THE STUDY: Tong Angel IS THIS A REPEAT EXAM DURING THIS ENCOUNTER: No REASON FOR EXAM: Chest pain VISUALIZED STRUCTURES: right anterior, left anterior, right lateral, left lateral, right posterior and left posterior PERTINENT FINDINGS/IMPRESSION: No apparent abnormalities; no B-Lines/left side, no B-lines/left side and no pneumothorax Exam complete
[2023-08-04] MEDS: Ketorolac 30 MG/ML VIAL IVP (22:50)
[2023-08-04 23:02] LABS: COVID-19 PCR Negative (Negative); Influenza A PCR Negative (Negative); Influenza B PCR Negative (Negative); RSV PCR Negative (Negative)
[2023-08-04 23:03] LABS: Source Nasopharynx
[2023-08-04 23:06] VITALS: RESP 16
[2023-08-04 23:16] VITALS: BP 132/70; PULSE 90; RESP 14; O2SAT 97
== END 2023-08-04 23:16 | disposition home or self-care (01) ==
PROVIDERS: Emergency Provider Student in an Organized Health Care Education/Training Program; PCP Physician Assistant
DX: J06.9 Acute upper respiratory infection, unspecified (principal); R07.89 Other chest pain; F17.290 Nicotine dependence, other tobacco product, uncomplicated; Z11.52 Encounter for screening for COVID-19
CPT/HCPCS: 76604; 87637; 93005; 93308; 96374; 99284; 93010; 99283; J1885

== ENCOUNTER 2024-09-14 11:11 | Outpatient (REF) | payer OTHER, SELFPAY ==
[2024-09-14 15:59] LABS: Anion Gap 5.8 mmol/L (3-11); BUN 13 mg/dL (7-18); CO2 29.2 mmol/L (21.0-32.0); CREATININE 0.9 mg/dL (0.70-1.30); Calculated LDL 106 mg/dL (<100); Chloride 106 mmol/L (98-107); Cholesterol 169 mg/dL (<200); Estimated GFR 123.84 (mL/min/1.73m2); Glucose 89 mg/dL (74-106); HDL Cholesterol 34 mg/dL (40-60); Potassium 4.4 mmol/L (3.5-5.1); Sodium 141 mmol/L (136-145); Triglyceride 148 mg/dL (<150)
[2024-09-14 16:14] LABS: Hemoglobin A1C 5.8 % (<5.7)
== END 2024-09-14 11:12 | disposition home or self-care (01) ==
LOC: NCHCN 11:11
PROVIDERS: PCP Physician Assistant; Visit Provider Physician Assistant
DX: Z13.1 Encounter for screening for diabetes mellitus (principal); E78.5 Hyperlipidemia, unspecified
CPT/HCPCS: 80048; 80061; 83036

== ENCOUNTER 2024-09-28 09:50 | Outpatient (CLI) | payer OTHER, SELFPAY ==
[2024-09-28 09:12] LABS: Abs Immature Grans 0.03 10^3/uL (0.0-0.06); Absolute Basophil Count 0.03 10^3/uL (0.0-0.2); Absolute Eosinophil Count 0.38 10^3/uL (0.0-0.7); Absolute Lymphocyte Count 1.87 10^3/uL (1.2-3.4); Absolute Monocyte Count 0.59 10^3/uL (0.1-0.8); Absolute Neutrophil Count 7.11 10^3/uL (1.2-6.7); Basophils % 0.3 %; Eosinophils % 3.8 %; HCT 42.8 % (40.0-50.0); HGB 13.9 g/dL (13.5-17.5); Immature Grans % 0.3 %; Lymphocytes % 18.7 %; MCH 27.8 pg (27.0-33.0); MCHC 32.5 % (32.0-36.0); MCV 86 fL (80-95); MPV 10.1 fL (8.0-11.0); Monocytes % 5.9 %; Platelet Count 277 10^3/uL (130-400); RDW 12.7 % (11.8-14.1); RDW-SD 39.7 fL; WBC 10.01 10^3/uL (4.4-10.8)
== END 2024-09-28 09:51 | disposition home or self-care (01) ==
LOC: LBO 09:50
PROVIDERS: PCP Physician Assistant; Visit Provider Physician Assistant Surgical
DX: G47.19 Other hypersomnia (principal)
CPT/HCPCS: 36415; 82306; 84443; 85025

== ENCOUNTER 2025-02-25 12:44 | Emergency (ER) | payer OTHER, SELFPAY ==
[2025-02-25 13:03] VITALS: BP 136/97; PULSE 70; RESP 16; TEMP 36.9; O2SAT 97
--- NOTE | 2025-02-25 14:30 | DI.CT_ITS ---
Exam(s) CT ABDOMEN PELVIS W EXAM: CT ABDOMEN PELVIS W CLINICAL HISTORY: epigastric and RUQ pain, eval GB. TECHNIQUE: Imaging Protocol: Axial computed tomography images with coronal and sagittal reformatted images were created and reviewed CONTRAST MATERIAL: Intravenous: Omnipaque 350 Contrast volume:100 ml Oral: no COMPARISON: No exams were available for comparison FINDINGS: ABDOMEN and PELVIS: Lung Bases: No acute findings. Liver: Hepatic steatosis. No suspicious mass. Gallbladder and biliary tract: No radiodense calculus. No wall thickening or pericholecystic fluid. No biliary dilation. Pancreas: Normal density. No abnormal calcifications or inflammatory process. No evidence of mass. Spleen: Normal. Kidneys: Normal size, contour and axis. No radiodense stones. No obstructive uropathy. No suspicious masses seen. Adrenal glands: No masses seen. Vasculature: Abdominal aorta non-dilated. Soft tissues: Unremarkable. Bladder: No gross wall thickening. No calculi.No focal mass. Bowel: The stomach is empty. No obstruction. No bowel wall thickening. Appendix normal. Normal quantity of stool. Peritoneal cavity: No ascites. No focal collection. No mesenteric inflammatory response. No free air. Bones: Degenerative disc changes at L5-S1. Reproductive organs: Unremarkable. Lymph nodes: No pathologically enlarged lymph nodes. IMPRESSION:: No acute abnormality in the abdomen or pelvis. The gallbladder appears normal. RADIATION DOSE DELIVERED: DATA REPOSITORY: All CT scans at this facility are submitted to the National Radiology Data Registry (NRDR) Dose Index Registry (DIR) with the [employer] (ACR). RADIATION OPTIMIZATION: All CT scans at this facility use at least one of these dose optimization techniques: automated exposure control; mA and/or kV adjustment per patient size (includes targeted exams where dose is matched to clinical indication); or iterative reconstruction.
[2025-02-25 14:39] VITALS: BP 115/95; PULSE 63; RESP 20; O2SAT 100
[2025-02-25] MEDS: Ondansetron 4 MG/2 ML VIAL IVP (14:55)
[2025-02-25] MEDS: Ketorolac 15 MG/ML VIAL IVP (14:55)
[2025-02-25 15:01] VITALS: BP 140/78; PULSE 82; RESP 18; O2SAT 98
[2025-02-25 15:05] LABS: Abs Immature Grans 0.03 10^3/uL (0.0-0.06); HCT 40.4 % (40.0-50.0); HGB 13.3 g/dL (13.5-17.5); Immature Grans % 0.3 %; MCH 28.1 pg (27.0-33.0); MCHC 32.9 % (32.0-36.0); MCV 85 fL (80-95); MPV 10.5 fL (8.0-11.0); Platelet Count 289 10^3/uL (130-400); RBC 4.74 10^6/uL (4.36-5.78); RDW 13.2 % (11.8-14.1); RDW-SD 40.3 fL; WBC 11.16 10^3/uL (4.4-10.8)
[2025-02-25 15:25] LABS: ALT 44 U/L (16-63); AST 19 U/L (15-37); Albumin 3.6 g/dL (3.4-5.0); Alkaline Phosphatase 81 U/L (46-116); Anion Gap 8.9 mmol/L (3-11); BUN 12 mg/dL (7-18); Bilirubin, Total 0.6 mg/dL (0.2-1.0); CO2 29.1 mmol/L (21.0-32.0); Calcium 9.6 mg/dL (8.5-10.1); Chloride 101 mmol/L (98-107); Estimated GFR 127.53 (mL/min/1.73m2); Glucose 79 mg/dL (74-106); Lipase 20 U/L (<78); Potassium 3.7 mmol/L (3.5-5.1); Sodium 139 mmol/L (136-145); Total Protein 7.9 g/dL (6.4-8.2)
[2025-02-25] MEDS: Normal Saline - Diluent 50 ML VIAL IJ (15:30)
[2025-02-25] MEDS: Omnipaque 350 MG/ML 100 ML BTL IJ (15:30)
[2025-02-25] MEDS: Sucralfate 1 GM TAB PO (17:13)
[2025-02-25] MEDS: Pantoprazole 40 MG VIAL IVP (17:13)
[2025-02-25] MEDS: Famotidine 20 MG/2 ML VIAL IVP (17:13)
[2025-02-25 17:31] VITALS: BP 132/75; PULSE 77
--- NOTE | 2025-02-25 17:31 | W.ED.GENAD ---
Discharge Plan Disposition Patient Disposition: Home Condition: Good Discharge Details Clinical Impression: Abdominal pain Primary Care Provider: Rei Quintero ED Provider: Tong Angel Home Meds and New Rx's Prescriptions: New sucralfate [Carafate] 1 gram tablet 1 g PO BID Qty: 60 0RF pantoprazole [Protonix] 40 mg tablet,delayed release (DR/EC) 40 mg PO DAILY Qty: 30 0RF famotidine 20 mg tablet 20 mg PO BID Qty: 60 0RF No Action Zepbound 2.5 mg/0.5 mL pen injector 2.5 mg SUBCUT QWEEK Patient Comments: inject 2.5mg SUBCUTANEOUSLY ONCE WEEKLY Discharge Instructions Instructions: Abdominal Pain, Adult ED Additional Instructions: At this time your CAT scan and laboratory workup have returned reassuring. There is no evidence of significant abnormality. I am concerned that there may be a duodenal or gastric ulcer causing your pain. Please avoid citrus foods, tomato-based products, or carbonic acid or carbonated beverages. Please stick with a mild bland diet for the next 1 to 2 weeks. Please take the medications as prescribed. Please follow-up closely with your primary care provider. We have placed a referral with surgery for follow-up for potential EGD. If you notice any worsening of your symptoms, or any new symptoms such as vomiting, diarrhea, fever, chills, shortness of breath, chest pain, numbness, weakness, or fainting , please return immediately to the emergency department for reevaluation. Please follow up with your primary care provider as soon as possible for reassessment and reevaluation. As always, it was a pleasure participating in your medical care today. Referrals: Rei Quintero [Primary Care Provider, Medicine] Discharge Data Discharge Date/Time-TO BE ENTERED AT DEPARTURE: 02/25/25 18:23 HPI General Date/Time Provider Initiated Documentation: 02/25/25 13:06. HPI Narrative: 24-year-old male with no significant past medical history who is currently on Zepbound, presents today for evaluation of abdominal pain. Patient states that for the last 3 days he has had epigastric upper abdominal pain that is now radiating to the mid periumbilical region. He describes the pain as achy and sharp. His mother did give him antiacids but it did not cause any improvement. He denies vomiting or diarrhea. He does admit to occasional nausea. Pain is made worse when he gets up and moves, and it is improved with rest. He denies any trauma. No other complaints at this time. No prior abdominal surgeries. Related Data Home Medications ?Medication ?Instructions ?Recorded ?Confirmed famotidine 20 mg tablet 20 mg PO BID #60 tabs 02/25/25 pantoprazole 40 mg tablet,delayed 40 mg PO DAILY #30 tabs 02/25/25 release (Protonix) sucralfate 1 gram tablet (Carafate) 1 g PO BID #60 tabs 02/25/25 tirzepatide (weight loss) 2.5 2.5 mg subcut QWEEK 02/25/25 02/25/25 mg/0.5 mL subcutaneous pen injector (Zepbound) Previous Rx's ?Medication ?Instructions ?Recorded famotidine 20 mg tablet 20 mg PO BID #60 tabs 02/25/25 pantoprazole 40 mg tablet,delayed 40 mg PO DAILY #30 tabs 02/25/25 release (Protonix) sucralfate 1 gram tablet (Carafate) 1 g PO BID #60 tabs 02/25/25 Allergies Allergy/AdvReac Type Severity Reaction Status Date / Time amoxicillin (Amoxicillin) Allergy Mild Skin Rash Verified 02/25/25 13:06 General Stated Complaint: Abd Prob NAVID: 3 Exam Narrative Exam Narrative: 1.Const: Well-nourished, Well-developed, appearing stated age 2.Eyes: PERRL, no conjunctival injection, and symmetrical lids. 3.ENT: Atraumatic external nose and ears. Moist MM. Neck: Symmetric, trachea midline, No thyromegaly. 4.CVS: +S1/S2, Peripheral pulses 2+ and equal in all extremities. Brisk capillary refill in all extremities. 5.RESP: Unlabored respiratory effort. Clear to auscultation bilaterally. No wheezes rales or rhonchi Nondistended. No guarding or rebound. Mild epigastric and mild supraumbilical tenderness. 7.MSK: Normocephalic/Atraumatic, Extremities w/o deformity or ttp No cyanosis or clubbing, Normal movement of all extremities 8.Skin: Warm, Dry. No rashes or lesions. 9.Neuro: contact lens blocker II-XII grossly intact. Sensation grossly intact, no focal neurologic deficits. 10.Psych: (AAO) x3. Appropriate mood and affect Course Vital Signs Vital signs: Vital Signs Temperature 36.9 C 02/25/25 13:03 Pulse 70 02/25/25 13:03 Respiratory Rate 16 02/25/25 13:03 Blood Pressure 136/97 H 02/25/25 13:03 Pulse Oximetry 97 02/25/25 13:03 Temperature 36.9 C 02/25/25 13:03 Temperature Source Oral 02/25/25 13:03 Pulse 77 02/25/25 17:31 Pulse Rhythm Regular 02/25/25 14:39 Pulse Strength Normal 02/25/25 14:39 Respiratory Rate 18 02/25/25 15:01 Respiratory Effort Normal, Non-Labored 02/25/25 14:39 Respiratory Depth Normal 02/25/25 14:39 Respiratory Pattern Normal 02/25/25 14:39 Blood Pressure 132/75 02/25/25 17:31 Blood Pressure Mean 94 02/25/25 17:31 Blood Pressure Position Sitting 02/25/25 14:39 Pulse Oximetry 98 02/25/25 15:01 Oxygen Delivery Method Room Air 02/25/25 14:39 Oxygen Flow Rate 0 02/25/25 14:39 Pain Level 5 02/25/25 14:39 Comment Pain = worse w/ movement. 02/25/25 13:03 Lab/Test Results Lab/Test Results: Laboratory Tests Range/Units 02/25/25 14:54 WBC (4.4-10.8) 10^3/uL 11.16 H RBC (4.36-5.78) 10^6/uL 4.74 Hgb (13.5-17.5) g/dL 13.3 L Hct (40.0-50.0) % 40.4 MCV (80-95) fL 85 MCH (27.0-33.0) pg 28.1 MCHC (32.0-36.0) % 32.9 RDW (11.8-14.1) % 13.2 Plt Count (130-400) 10^3/uL 289 MPV (8.0-11.0) fL 10.5 Immature Gran % % 0.3 Neutrophils % % 68.3 Lymphocytes % % 21.8 Monocytes % % 5.6 Eosinophils % % 3.7 Basophils % % 0.3 Nucleated RBC % (0.0-0.3) % 0.0 Absolute Neutrophils (1.2-6.7) 10^3/uL 7.62 H Absolute Lymphocytes (1.2-3.4) 10^3/uL 2.43 Absolute Monocytes (0.1-0.8) 10^3/uL 0.62 Absolute Eosinophils (0.0-0.7) 10^3/uL 0.41 Absolute Basophils (0.0-0.2) 10^3/uL 0.03 Sodium (136-145) mmol/L 139 Potassium (3.5-5.1) mmol/L 3.7 Chloride (98-107) mmol/L 101 Carbon Dioxide (21.0-32.0) mmol/L 29.1 Anion Gap (3-11) mmol/L 8.9 BUN (7-18) mg/dL 12 Creatinine (0.70-1.30) mg/dL 0.8 Est GFR (CKD-EPI 2020) (mL/min/1.73m2) 127.53 Glucose (74-106) mg/dL 79 Calcium (8.5-10.1) mg/dL 9.6 Total Bilirubin (0.2-1.0) mg/dL 0.6 AST (15-37) U/L 19 ALT (16-63) U/L 44 Alkaline Phosphatase (46-116) U/L 81 Total Protein (6.4-8.2) g/dL 7.9 Albumin (3.4-5.0) g/dL 3.6 Lipase (<78) U/L 20 Medical Decision Making 24-year-old male with no significant past medical history who is currently on Zepbound, presents today for evaluation of abdominal pain. Patient states that for the last 3 days he has had epigastric upper abdominal pain that is now radiating to the mid periumbilical region. He describes the pain as achy and sharp. His mother did give him antiacids but it did not cause any improvement. He denies vomiting or diarrhea. He does admit to occasional nausea. Pain is made worse when he gets up and moves, and it is improved with rest. He denies any trauma. No other complaints at this time. No prior abdominal surgeries. Exam demonstrates stable vital signs, mild epigastric and umbilical tenderness on palpation. No guarding or rebound. No evidence to suggest an acute surgical abdomen. Differential includes pancreatitis, gallbladder pathology, less likely appendicitis. Mesenteric adenitis is of concern. CT scan was ordered and shows no evidence of acute process. Laboratory workup shows normal electrolytes, normal urinalysis with noes evidence of suggest UTI or pyelonephritis. Minimal elevated white count. CT scan shows normal gallbladder, no other abnormality. Suspect potential gastric ulcer, duodenal ulcer, or gastric irritation. Will recommend Carafate, famotidine and Protonix for the next 1 to 2 weeks, will place referral with surgery for potential nonemergent EGD. Mother was at bedside, these findings were also discussed with her. We discussed red flags for which to return, and recommended dietary modifications. I have extensively reviewed the treatment plan and discharge instructions with the patient. I have addressed all patient concerns at this time. The patient was made aware of what symptoms to monitor for that would warrant a return to the emergency department. Discussed the plan with the patient, they demonstrate verbal understanding and agreement with our assessment and plan at this time. The documentation in this chart was dictated using [employer] dictation software. Please excuse any dictation errors. FINDINGS: ABDOMEN and PELVIS: Lung Bases: No acute findings. Liver: Hepatic steatosis. No suspicious mass. Gallbladder and biliary tract: No radiodense calculus. No wall thickening or pericholecystic fluid. No biliary dilation. Pancreas: Normal density. No abnormal calcifications or inflammatory process. No evidence of mass. Spleen: Normal. Kidneys: Normal size, contour and axis. No radiodense stones. No obstructive uropathy. No suspicious masses seen. Adrenal glands: No masses seen. Vasculature: Abdominal aorta non-dilated. Soft tissues: Unremarkable. Bladder: No gross wall thickening. No calculi.No focal mass. Bowel: The stomach is empty. No obstruction. No bowel wall thickening. Appendix normal. Normal quantity of stool. Peritoneal cavity: No ascites. No focal collection. No mesenteric inflammatory response. No free air. Bones: Degenerative disc changes at L5-S1. Reproductive organs: Unremarkable. Lymph nodes: No pathologically enlarged lymph nodes. IMPRESSION:: No acute abnormality in the abdomen or pelvis. The gallbladder appears normal. PFSH All Active Problems (Updated 02/25/25 @ 18:12 by Tong Angel DO) Abdominal pain (Acute) Excessive daytime sleepiness (Acute) Finger laceration (Acute) Avulsion of nail (Acute) Laceration of finger nail bed (Acute) Back pain (Acute) Body aches (Acute) Medical History ADD (attention deficit disorder) Surgical History No significant past surgical history Social History Smoking/Tobacco Use Status: Current-Occasional Tobacco Type: smokeless tobacco Smoking risk assessment performed?: Yes Alcohol Intake: never Drug use: Never Substance use type: does not use Current gender identity: male Do you feel safe at home: Yes Do you feel safe in your relationship?: Yes
[2025-02-25 17:37] LABS: Glucose Negative (Negative)
[2025-02-25 17:47] LABS: C & S Indicated? No; RBC 0-2 HPF (0-2); WBC 0-2 HPF (0-5)
[2025-02-25 18:23] VITALS: BP 120/53; PULSE 61; RESP 16; O2SAT 98
== END 2025-02-25 18:23 | disposition home or self-care (01) ==
PROVIDERS: Emergency Provider Student in an Organized Health Care Education/Training Program; PCP Physician Assistant
DX: R10.33 Periumbilical pain (principal); R11.0 Nausea
CPT/HCPCS: 99284; 99285; 96374; 96375; 36415; 80053; 83690; 74177; 81003; 81015; 85025; J1885; J2405; J2470; J3490

== ENCOUNTER 2025-06-12 13:18 | Emergency (ER) | payer OTHER, SELFPAY ==
[2025-06-12 13:27] VITALS: BP 121/80; PULSE 71; RESP 18; TEMP 36.8; O2SAT 96
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
[2025-06-12] MEDS: Normal Saline Flush 10 ML SYR IVP (14:07)
[2025-06-12] MEDS: Omnipaque 350 MG/ML 100 ML BTL IJ (14:07)
[2025-06-12] MEDS: Normal Saline - Diluent 50 ML VIAL IJ (14:07)
[2025-06-12 14:10] LABS: Abs Immature Grans 0.04 10^3/uL (0.0-0.06); HCT 41.8 % (40.0-50.0); HGB 13.4 g/dL (13.5-17.5); Immature Grans % 0.4 %; MCH 27.3 pg (27.0-33.0); MCHC 32.1 % (32.0-36.0); MCV 85 fL (80-95); MPV 10.2 fL (8.0-11.0); Platelet Count 287 10^3/uL (130-400); RBC 4.91 10^6/uL (4.36-5.78); RDW 13.6 % (11.8-14.1); RDW-SD 42.6 fL; WBC 10.02 10^3/uL (4.4-10.8)
[2025-06-12 14:19] LABS: Anion Gap 7.5 mmol/L (3-11); BUN 10 mg/dL (7-18); CO2 29.5 mmol/L (21.0-32.0); Calcium 9.0 mg/dL (8.5-10.1); Chloride 102 mmol/L (98-107); Estimated GFR 123.07 (mL/min/1.73m2); Glucose 90 mg/dL (74-106); Potassium 4.0 mmol/L (3.5-5.1); Sodium 139 mmol/L (136-145)
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
[2025-06-12] MEDS: Acetaminophen 325 MG TAB 650 MG PO (14:39)
[2025-06-12 15:18] LABS: Troponin I 4 ng/L (<or=76)
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
== END 2025-06-12 17:28 | disposition short-term general hospital (02) ==
PROVIDERS: Emergency Provider Student in an Organized Health Care Education/Training Program; PCP Physician Assistant
DX: S40.012A Contusion of left shoulder, initial encounter (principal); V49.40XA Driver injured in collision with unspecified motor vehicles in traffic accident, initial encounter; G54.0 Brachial plexus disorders
CPT/HCPCS: 99285 ×2; 71275; 80048; 70450; 72125; 72128; 73030; 84484; 85025; J3490

== ENCOUNTER 2025-06-13 21:05 | Observation (INO) | payer OTHER, SELFPAY ==
[2025-06-13] VITALS (13 sets, daily range): BP systolic 137–179; BP diastolic 75–159; PULSE 58–78; RESP 13–20; TEMP 37; O2SAT 94–99
--- NOTE | 2025-06-13 21:15 | RT.EKG_ITS ---
APPROVED REPORT Exam: Resting ECG Reason for Exam: Arm numbness Patient Location: E HR:72 bpm ECG Measurements Heart Rate 72 AXIS OK 145 P 26 QRSd 103 QRS 10 QT 369 T 34 QTc 405 Conclusion Sinus rhythm, rate 72 No interval abnormalities No STEMI No significant changes from priors
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
[2025-06-13] MEDS: Normal Saline Flush 10 ML SYR IVP (21:37)
[2025-06-13] MEDS: Normal Saline - Diluent 50 ML VIAL IJ (21:39)
[2025-06-13 21:40] LABS: Abs Immature Grans 0.03 10^3/uL (0.0-0.06); HCT 40.4 % (40.0-50.0); HGB 13.0 g/dL (13.5-17.5); Immature Grans % 0.3 %; MCH 27.3 pg (27.0-33.0); MCHC 32.2 % (32.0-36.0); MCV 85 fL (80-95); MPV 10.2 fL (8.0-11.0); Platelet Count 294 10^3/uL (130-400); RBC 4.76 10^6/uL (4.36-5.78); RDW 13.5 % (11.8-14.1); RDW-SD 42.0 fL; WBC 9.47 10^3/uL (4.4-10.8)
[2025-06-13] MEDS: Omnipaque 350 MG/ML 100 ML BTL IJ (21:49)
[2025-06-13] MEDS: diazePAM 10 MG/2 ML SYR 5 MG IVP (21:56)
[2025-06-13 22:00] LABS: Albumin 3.5 g/dL (3.4-5.0); Alkaline Phosphatase 83 U/L (46-116); BUN 12 mg/dL (7-18); Bilirubin, Total 0.3 mg/dL (0.2-1.0); CO2 27.8 mmol/L (21.0-32.0); Calcium 9.1 mg/dL (8.5-10.1); Chloride 104 mmol/L (98-107); Glucose 123 mg/dL (74-106); Potassium 3.5 mmol/L (3.5-5.1); Sodium 142 mmol/L (136-145); Total Protein 7.8 g/dL (6.4-8.2)
[2025-06-13 22:01] LABS: ALT 43 U/L (16-63); AST 17 U/L (15-37); Anion Gap 10.2 mmol/L (3-11); Troponin I 4 ng/L (<or=76)
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
[2025-06-13 23:06] LABS: Troponin I < 4 ng/L (<or=76)
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
--- NOTE | 2025-06-14 | DI.MRI_ITS ---
Exam(s) MR BRAIN WO EXAM: MR BRAIN WO CLINICAL HISTORY: LUE numbness TECHNIQUE: Multiplanar multisequence MRI of the brain was performed. COMPARISON: No exams were available for comparison FINDINGS: CEREBRAL PARENCHYMA: There is no evidence of intracranial hemorrhage, mass effect, or shift of midline structures. There are no extra-axial fluid collections. Ventricles are not enlarged or shifted. No evidence of significant cerebellar tonsillar ectopia. There is no significant focal signal abnormality in the cerebellar hemispheres nor within the jasmin, midbrain, and thalami. There is no abnormal signal abnormality in the periventricular white matter. There is no significant focal signal abnormality evident on diffusion imaging to suggest acute ischemic event. PITUITARY GLAND: No mass nor parasellar abnormality. No obvious abnormality in the cavernous sinuses. FLOW VOIDS: The expected flow void are noted. No evidence of obvious aneurysm nor obvious vascular malformation. PARANASAL SINUSES: There is mild mucosal thickening in the medial wall the left maxillary sinus, not associated with a fluid level. There is also some mucosal thickening in the ethmoidal air cells and bilateral frontoethmoidal recesses. ORBITS: No obvious findings. IMPRESSION: No significant intracranial findings on this noninfused MRI scan of the brain. See separate brain MRA report DATA REPOSITORY:
--- NOTE | 2025-06-14 | DI.MRI_ITS ---
Exam(s) MR ANGIO BRAIN WO EXAM: MR ANGIO BRAIN WO CLINICAL HISTORY: LUE weakness TECHNIQUE: Performed on 1.5 riccardo unit with [id number] sequence. . COMPARISON: CT CT CAROTID NECK CTA from 06/13/2025 MR MR BRAIN WO from 06/14/2025 FINDINGS: ANTERIOR CIRCULATION: Both internal carotid arteries are patent in the skull base-carotid canals. However, there appears to be a focal narrowing the right internal carotid artery in the skull based proximal to the intra cavernous component. The intra cavernous components of both internal carotid arteries are patent and continuous with the patent supraclinoid aspects of both internal carotid arteries. Both A1 segments are patent as are the anterior cerebral arteries. There is no evidence of aneurysm at the level the anterior communicating artery. Both middle cerebral arteries are patent out to the sylvian artery branches. POSTERIOR CIRCULATION: Both vertebral arteries contribute to the formation of the basilar artery at the skull base. The basilar artery ascends in the midline with no significant stenosis nor significant dolichoectasia. Distally gives off patent superior cerebellar arteries and above this level terminates as patent bilateral posterior cerebral arteries. There is no aneurysm of the tip of the basilar artery nor elsewhere in the [id number]. IMPRESSION: There appears to be a focal moderate stenosis in the right internal carotid artery in the skull base just proximal to the intracavernous component.. There is a possibly that this is artifact given that there did not appear to be an obvious stenosis at this location on CT angiography performed yesterday (06/13/2025). DATA REPOSITORY:
[2025-06-14] MEDS: Aspirin 81 MG CHEW (00:11)
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
[2025-06-14 00:42] VITALS: BP 117/86; PULSE 68; RESP 16; TEMP 35.9; O2SAT 98
[2025-06-14 00:45] VITALS: BP 117/86; PULSE 68; RESP 16; TEMP 35.9; O2SAT 98
[2025-06-14 06:59] LABS: Anion Gap 7.3 mmol/L (3-11); BUN 11 mg/dL (7-18); CO2 28.7 mmol/L (21.0-32.0); Calcium 8.8 mg/dL (8.5-10.1); Chloride 106 mmol/L (98-107); Glucose 86 mg/dL (74-106); Potassium 3.8 mmol/L (3.5-5.1); Sodium 142 mmol/L (136-145)
[2025-06-14 07:47] VITALS: BP 124/82; PULSE 63; RESP 16; TEMP 36.4; O2SAT 99
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
[2025-06-14] MEDS: Aspirin 81 MG CHEW PO (08:34)
[2025-06-14] MEDS: Ketorolac 30 MG/ML VIAL IVP ×2 (11:19→19:49)
[2025-06-14] MEDS: diazePAM 10 MG/2 ML SYR 5 MG IVP (11:20)
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
--- NOTE | 2025-06-14 15:07 | PHA.REVIEW2 ---
Pharmacy Admission Review Admission Clinical Review Admission Pharmacy Review: LUE numbness (Acute) amoxicillin (Amoxicillin) Allergy (Mild, Verified 06/13/25 21:10) Skin Rash Resuscitation Status Full Code Height 5 ft 11 in Weight 152.7 kg Pharmacy Admission Review Renal Dosing Renal Dosing: BUN 11 mg/dL (7-18) 06/14/25 06:13 Creatinine 0.8 mg/dL (0.70-1.30) 06/14/25 06:13 Medications needing adjustments: Reviewed (CrCl 215.8 mL/min) List of meds needing interventions: Current medications are okay Anticoagulation Anticoagulation: Hgb 13.0 g/dL (13.5-17.5) L 06/13/25 21:33 Hct 40.4 % (40.0-50.0) 06/13/25 21:33 Plt Count 294 10^3/uL (130-400) 06/13/25 21:33 Creatinine 0.8 mg/dL (0.70-1.30) 06/14/25 06:13 DVT Prophylaxis: N/A Relevant Labs Relevant Labs: Sodium 142 mmol/L (136-145) 06/14/25 06:13 Potassium 3.8 mmol/L (3.5-5.1) 06/14/25 06:13 Chloride 106 mmol/L (98-107) 06/14/25 06:13 Electrolytes, C-Reactive P, ESR: Reviewed Cardiac Review Cardiac Review: Troponin I < 4 ng/L (<or=76) 06/13/25 22:40 BP, HR, EF%: Reviewed (HR and BP WNL) QTc Review QTc: Reviewed (405 from 06/13/25) IV to PO Switch IV Medications: Reviewed (ketorolac) Home Meds Home Med List reviewed: Reviewed Relevent Home Meds Not ordered & why?: No known home meds Current Meds Current Medication Order Review: Intervened Comments: Discontinued duplicate Miralax order Added IV access order
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
[2025-06-14 19:38] VITALS: BP 152/90; PULSE 82; RESP 18; TEMP 37; O2SAT 97
[2025-06-14] MEDS: Normal Saline Flush 10 ML SYR IVP (19:49)
[2025-06-14] MEDS: Acetaminophen 325 MG TAB PO (22:18)
[2025-06-15 07:43] VITALS: BP 84/47; PULSE 58; RESP 17; TEMP 35.6; O2SAT 97
[2025-06-15 08:06] VITALS: BP 110/82
[2025-06-15] MEDS: Aspirin 81 MG CHEW PO (09:19)
--- NOTE | 2025-06-15 09:23 | PTTR_ITS ---
PT Notes Visit Reasons: LUE Numbness Physical Therapy Inpatient Treatment Note Date: 06/15/2025 Precautions: Standard. Activity as tolerated. Subjective: Patient could not wait to go home today. Still reports pain in neck and upper back on the L. No issues with mobility and does not need an assitive device. Objective: General Observation: Patient was standing inside room when PT came in. Mental Status: Alert and oriented as to person, place, time, and purpose. Able to pay attention, focus, and respond appropriately. Pain: 3-4/10 head and L posterior neck and L upper back Vital Signs: Monitored by nursing ROM: Cervical rotation R WFL Cervical rotation L limited (approx 50%) with pain at end range Cervical lateral flexion R limited with pain at end range Cervical lateral flexion L limited (approx 50%) with pain at end range Cervical flexion WFL Cervical extenson WFL Right Upper Extremity: Shoulder Flexion slightly decreased. Shoulder abduction slightly decreased. Elbow flexion WFL. Wrist flexion WFL. Functional opening and closing of hand WFL. Left Upper Extremity: Shoulder Flexion decreased. Shoulder abduction decreased. Elbow flexion WFL. Wrist flexion WFL. Functional opening and closing of hand WFL. Right Lower Extremity: Grossly WFL. Left Lower Extremity: Grossly WFL STRENGTH: Cervical rotator R 4/5 Cervical rotator L 3+/5 Cervical lateral flexor R 4-/5 Cervical lateral flexor L 3-/5 Cervical flexor 4/5 Cervical extensor 4/5 Right Upper Extremity: Shoulder flexors 5/5. Shoulder abductors 5/5. Elbow flexors 5/5. Elbow extensors 5/5. Supervisor Webbing strong. Left Upper Extremity: Shoulder flexors 4/5. Shoulder abductors 4/5. Elbow flexors 3+/5. Elbow extensors 3+/5. Moderate. 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 x 3 minutes STM to levator scapula and upper trap on L with head in neutral and with head turned and bent to R side x 3 minutes Scapulr stabilization x 1 minute THERA EX: Access Code: [email or web address] URL: [email or web address] Date: 06/15/2025 Prepared by: Stacy Inman Exercises - Standing Isometric Cervical Flexion with Manual Resistance - 1 x daily - 7 x weekly - 1 sets - 10 reps - 5 hold - Standing Isometric Cervical Extension with Manual Resistance - 1 x daily - 7 x weekly - 1 sets - 10 reps - 5 hold - Seated Isometric Cervical Rotation - 1 x daily - 7 x weekly - 1 sets - 10 reps - 5 hold - Standing Isometric Cervical Sidebending with Manual Resistance - 1 x daily - 7 x weekly - 1 sets - 10 reps - 5 hold - Seated Upper Trapezius Stretch - 1 x daily - 7 x weekly - 1 sets - 10 reps - 5 hold - Seated Cervical Sidebending Stretch - 1 x daily - 7 x weekly - 1 sets - 10 reps - 5 hold - Seated Scapular Retraction - 1 x daily - 7 x weekly - 1 sets - 10 reps - 5 hold - Standing Shoulder W at Wall - 1 x daily - 7 x weekly - 1 sets - 10 reps - 5 hold Assessment: Patient reported some soreness after session but felt sleepy and relaxed wanting to go to bed. Patient is agreeable to receiving continued neck pain management and L UE weakness related to radiculopathic symptoms from C4-C7 disk herniation and impingement syndrome. Plan of Care/Treatment Plan: Continue with OP PT for neck pain and L UE management to facilitate return to [facility] an participation in all vocatinal and recreational activities. DISCHARGE RECOMMENDATIONS: Home with outpatient PT TREATMENT CODE/TIME: 99916 x 25 minutes for 2 units, 39800 x 14 minutes for 1 unit (9:23-10:02).
--- NOTE | 2025-06-15 10:17 | PDOC.CMDIS ---
Date of service: 06/15/25 Time of Service: 10:17 LACE Index Scoring Tool Questions: Length of Stay (in days): 2 Was the patient admitted via the E.D.?: Yes E.D. Visits: 3 Answers: Total Score: 8 Risk of Readmission: Low Risk Care Management Discharge Plan Reason for Hospitalization: LUE numbness Discharge Plan: Brijesh is being discharge home via private vehicle with family. He will follow up with community providers and continue per his discharge plan of care as directed. Return to work note is provide, date of return is set for 06/20/25, no restrictions. PCP follow up and Outpatient PT is recommended. Patient/Family Education Needs: Review discharge instructions and plan to follow up after discharge. Discuss ask me three. SDOH Health Related Social Needs: Health related social needs education Health related social needs details sleep apnea Health related social needs details: sleep apnea
--- NOTE | 2025-06-15 12:42 | W.NUTRFU ---
Date of service: 06/15/25 Time of Service: 12:42 Nutrition Note NOTE: have checked n on [place] multiple times during admission. Initiall assessed as lower acute nutrition risk Class III obesity noted - outpatient MNT services available. Tolerating regular diet. no food allergies. discharge anticipated shortly - will monitor for any education needs. Time Spent in Nutritional Counseling and Treatment: 5 min
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
== END 2025-06-15 15:06 | disposition home or self-care (01) ==
LOC: ER 23:37 → MS 06-14 00:34
PROVIDERS: Admitting Provider Hospitalist; Emergency Provider Physician Assistant; PCP Physician Assistant; Responsible Provider Family Medicine; Visit Provider Hospitalist
DX: R20.0 Anesthesia of skin (principal); M50.221 Other cervical disc displacement at C4-C5 level; S40.012A Contusion of left shoulder, initial encounter; F17.220 Nicotine dependence, chewing tobacco, uncomplicated; F98.8 Other specified behavioral and emotional disorders with onset usually occurring in childhood and adolescence; V49.88XA Car occupant (driver) (passenger) injured in other specified transport accidents, initial encounter; M54.9 Dorsalgia, unspecified; G47.30 Sleep apnea, unspecified
CPT/HCPCS: 00123; 36415; 70498; 70544; 80048; 80053; 93005; 96374; 97140; 97162; 97530; 99285; 70551; 84484; 85025; 93010; 99222; 99231; 99238; G0378; J1885; J3360; J3490